=== PATIENT | female | born 1985 | race Two or more races ===

== ENCOUNTER → 2021-07-30 14:53 | Outpatient (BNVA) | payer OTHER, SELFPAY | PROVIDERS: PCP Family Medicine; Referring Provider Family Medicine; Visit Provider Internal Medicine Gastroenterology | DX: K51.90 Ulcerative colitis, unspecified, without complications (principal); Z93.2 Ileostomy status | CPT/HCPCS: 99202 ==

== ENCOUNTER 2021-11-15 16:41 | Outpatient (REF) | payer OTHER, SELFPAY ==
--- NOTE | ~2021-11-15 | XR_ITS ---
EXAMINATION: XR CHEST CLINICAL INFORMATION: Cough COMPARISON: None TECHNIQUE: 2 views of the chest were obtained. FINDINGS: No significant abnormality is noted involving the heart, lungs, mediastinum, bony thorax or soft tissues. XR/XR chest 2V IMPRESSION: No acute disease.
== END 2021-11-15 16:42 | disposition home or self-care (01) ==
LOC: HO.XRAY 16:41
PROVIDERS: Absent Provider Family Medicine; PCP Family Medicine; Visit Provider Internal Medicine Geriatric Medicine
DX: R05.9 Cough, unspecified (principal)
CPT/HCPCS: 71046

== ENCOUNTER 2021-12-13 10:47 | Day surgery (SDC) | payer OTHER, SELFPAY ==
--- NOTE | 2021-12-10 09:17 | HO.ANESPROP2 ---
Documented by User: Sarah Fletcher NP 12/10/21 09:17 HPI - Anesthesia Eval Consult details Narrative: 36yo F for Sigmoidoscopy Flexible [facility] Active Problems Active Problems: All Active Problems (Updated 08/10/21 @ 13:49 by Racquel Villegas MD) Dysmenorrhea (Acute) Ulcerative colitis (Acute) Past Medical History Medical History CMV (cytomegalovirus infection) History of depression Psoriasis Ulcerative colitis Surgical History Surgical History Hx of wisdom tooth extraction Status post colectomy Social History Social History Patient Tobacco Use Status: Never used Tobacco Use of substances other than those prescribed or required for medical reasons: No Are you DNR?: No Advance Directives: No Advance Directives Information Provided: Yes Meds Allergies Allergy/AdvReac Type Severity Reaction Status Date / Time infliximab [From Remicade] Allergy Unknown Verified 12/13/21 10:57 Sulfa (Sulfonamide Allergy Anaphylaxis Verified 12/13/21 10:57 Antibiotics) Home Medications Medication Instructions Recorded Confirmed Last Taken Type mesalamine 1,000 mg rectal 1 g ND BEDTIME 07/30/21 07/30/21 Unknown History suppository fluoxetine 20 mg capsule 1 cap PO QAM 12/13/21 12/13/21 Unknown History norethindrone (contraceptive) 0.35 1 tab PO DAILY 12/13/21 12/13/21 Unknown History mg tablet Exam Exam Date and Time: December 10, 2021 0917 Assessment and Plan Assessment Anesthesia Assessment: Chart Reviewed Documented by User: Tavia Rodriguez MD 12/13/21 12:01 [facility] Past Medical History Medical History CMV (cytomegalovirus infection) History of depression Psoriasis Ulcerative colitis Family History Family history of problems with anesthesia: No Surgical History Surgical History Hx of wisdom tooth extraction Status post colectomy History of Problems with Anesthesia: No Social History Social History Patient Tobacco Use Status: Never used Tobacco Use of substances other than those prescribed or required for medical reasons: No Are you DNR?: No Advance Directives: No Advance Directives Information Provided: Yes Meds Allergies Allergy/AdvReac Type Severity Reaction Status Date / Time infliximab [From Remicade] Allergy Unknown Verified 12/13/21 10:57 Sulfa (Sulfonamide Allergy Anaphylaxis Verified 12/13/21 10:57 Antibiotics) Home Medications Medication Instructions Recorded Confirmed Last Taken Type mesalamine 1,000 mg rectal 1 g ND BEDTIME 07/30/21 07/30/21 Unknown History suppository fluoxetine 20 mg capsule 1 cap PO QAM 12/13/21 12/13/21 Unknown History norethindrone (contraceptive) 0.35 1 tab PO DAILY 12/13/21 12/13/21 Unknown History mg tablet Exam Airway Mallampati Class: II TM Dist: >3cm Neck ROM: Full Heart: rrr Lungs: cta Assessment and Plan Assessment Anesthesia Assessment: Anesthesia Plan Discussed and Chart Reviewed Final Anesthetic Review Family History of Problems with Anesthesia: No History of Problems with Anesthesia: No NPO: Yes ASA Class: II Final Preanesthetic Review: No Changes in Pt Med Stat, Meds/Allgs Chart Reviewed and Consent Obtained/Reviewed Patient Risk: Intermediate Procedure Risk: Intermediate Anesthetic Plan Anesthetic Plan: MAC: Disposition: Standard PACU
[2021-12-13 11:06] VITALS: BMI 26.4
[2021-12-13 11:11] VITALS: BP 105/77; PULSE 63; RESP 15; TEMP 36.3; O2SAT 97
[2021-12-13 11:18] LABS: UPreg QC Valid YES
[2021-12-13 11:20] LABS: Urine Pregnancy NEGATIVE (NEGATIVE)
[2021-12-13] MEDS: Lactated Ringers 1,000 ML 100 ML IVCONT (11:28)
--- NOTE | 2021-12-13 12:02 | P.HPSUR_ITS ---
Pre-Procedural Eval Section A Date of Service: 12/13/21 The patient is an INPATIENT: No The History & Physical has been completed within 30 days and I have reviewed it.: No Section B Chief Complaint: colitis Details of Present Illness: Follow-up of ulcerative colitis Relevant Family History (Specify if Yes): No Relevant Social History: None Present Medications: see Short Stay Collaborative assessment Medical History: Significant History (CMV (cytomegalovirus infection) Psoriatic arthritis) History of Previous Operations: Relevant previous surgery/procedure and date(s) (Subtotal colectomy with removal of TI and ? 1 foot of TI at [place], in [facility]) Allergies: Allergies Allergy/AdvReac Type Severity Reaction Status Date / Time infliximab [From Remicade] Allergy Unknown Verified 12/13/21 10:57 Sulfa (Sulfonamide Allergy Anaphylaxis Verified 12/13/21 10:57 Antibiotics) Review of Systems Sugical H&P ROS: Negative: Constitution, Cardiovascular, Respiratory and Gastrointestinal Exam Surgical H&P Exam: Normal: Heart, Normal: Lungs, Normal: Extremities and Normal: Abdomen Plan Diagnosis/Plan: Unchanged I have reviewed the history and physical and performed a pertinent physical examination on my patient. No changes have occurred unless specified.
--- NOTE | 2021-12-13 12:03 | PM.OP ---
Brief Operative Note Date of Service: 12/13/21 Pre-op diagnosis: FU of UC. Subtotal colectomy with removal of TI and ? 1 foot of TI at [place], in [facility] Post-op diagnosis: same Procedure: ILEOSCOPY THROUGH STOMA AND FLEXIBLE SIGMOIDOSCOPY TILL 5 CMS WITH BIOPSIES Consent: Indications for the procedure and potential complications of bleeding, perforation, reaction to medications and missed diagnosis were discussed with the patient and informed consent was obtained. Instrument: Olympus PCF H 190 L variable stiffness pediatric colonoscope Monitoring: Vital signs and clinical assessment, intermittent blood pressure monitoring, continuous EKG monitoring, Pulse oximetry and Carbon Dioxide monitoring were done throughout the procedure. Procedure: The patient was placed in the supine position for ileoscopy and pre-procedure medications were administered. After digital examination of the Ostomy stoma, the video colonoscope was advanced to 25 cms. The colonoscope was slowly withdrawn in a retrograde panoramic fashion and the colon mucosa was carefully examined Pt was repositioned into the left lateral decubitis position for the sigmoidoscopy After a digital rectal examination of the ano-rectum, the video colonoscope was inserted into the rectum and advanced through the colon to 5 cms. The colonoscope was slowly withdrawn in a retrograde panoramic fashion and the colon mucosa was carefully examined including a retroflexed view of the rectum. Findings and interventions are described below. ILEOSCOPY: Findings: Terminal Ileum: Normal small bowel mucosa without erythema or ulcerations FLEXIBLE SIGMOIDOSCOPY: Rectum: Friable appearing rectal mucosa in the rectal stump without ulcerations or bleeding. Random biopsies were obtained Ano-rectum: Normal on antegrade withdrawl Colon preparation: Good Impression and Post Procedure Diagnosis: Ileoscopy and flexible sigmoidoscopy Findings: Terminal Ileum: Normal small bowel mucosa without erythema or ulcerations Rectum: Friable appearing rectal mucosa in the rectal stump without ulcerations or bleeding. Random biopsies were obtained Plan: Await pathology results Patient to schedule a FU appointment in the GI clinic with Racquel Villegas M.D.. Repeat sigmoidoscopy in 2 years for UC surveillance. Ulcerative Colitis handout was given in the discharge area Surgeon: Racquel Villegas MD Anesthesia: MAC Was an Commercial Lines Underwriter used for this Procedure?: Yes Commercial Lines Underwriter: Vicky Berg Estimated blood loss (mL): 0 Pathology: other (A. rectal stump bxs) Condition: stable Disposition: PACU
--- NOTE | 2021-12-13 12:13 | W.PM.OPN ---
Operative Note Operative Note Date of Service: 12/13/21 Narrative: Pre-op diagnosis: FU of UC. Subtotal colectomy with removal of TI and ? 1 foot of TI at [place], in [facility] Post-op diagnosis:?same Procedure: ILEOSCOPY THROUGH STOMA AND FLEXIBLE SIGMOIDOSCOPY TILL? 5 CMS WITH BIOPSIES Consent: Indications for the procedure and potential complications of bleeding, perforation, reaction to medications and missed diagnosis were discussed with the patient and informed consent was obtained. Instrument: Olympus PCF H 190 L variable stiffness pediatric colonoscope Monitoring: Vital signs and clinical assessment, intermittent blood pressure monitoring, continuous EKG monitoring, Pulse oximetry and Carbon Dioxide monitoring were done throughout the procedure. Procedure: The patient was placed in the supine position for ileoscopy and pre-procedure medications were administered.? After digital examination of the Ostomy stoma, the video colonoscope was advanced to 25 cms.? The colonoscope was slowly withdrawn in a retrograde panoramic fashion and the colon mucosa was carefully examined Pt was repositioned into the left lateral decubitis position for the sigmoidoscopy After a digital rectal examination of the ano-rectum, the video colonoscope was inserted into the rectum and advanced through the colon to 5 cms. The colonoscope was slowly withdrawn in a retrograde panoramic fashion and the colon mucosa was carefully examined including a retroflexed view of the rectum. Findings and interventions are described below. ILEOSCOPY: Findings: Terminal Ileum: Normal small bowel mucosa without erythema or ulcerations FLEXIBLE SIGMOIDOSCOPY: Rectum:? Friable appearing rectal mucosa in the rectal stump without ulcerations or bleeding.? Random biopsies were obtained Ano-rectum:? Normal on antegrade withdrawl Colon preparation:? Good? Impression and Post Procedure Diagnosis: Ileoscopy and flexible sigmoidoscopy Findings: Terminal Ileum: Normal small bowel mucosa without erythema or ulcerations Rectum:? Friable appearing rectal mucosa in the rectal stump without ulcerations or bleeding.? Random biopsies were obtained Plan: Await pathology results Patient to schedule a FU appointment in the GI clinic with Racquel Villegas M.D.. Repeat sigmoidoscopy in 2 years for UC surveillance. Ulcerative Colitis handout was given in the discharge area Surgeon: Racquel Villegas MD Anesthesia:?MAC Was an Grinder Operator Automatic used for this Procedure?:?Yes Grinder Operator Automatic:?Vicky Berg Estimated blood loss (mL):?0 Pathology:?other (A. rectal stump bxs) Condition:?stable Disposition:?PACU
[2021-12-13 12:44] VITALS: BP 97/57; PULSE 52; RESP 16; TEMP 36.6; O2SAT 99
[2021-12-13 12:59] VITALS: BP 95/63; PULSE 70; RESP 18; TEMP 37.1; O2SAT 99
== END 2021-12-13 13:32 ==
LOC: HO.SSS 10:48
PROVIDERS: Nurse Practitioner; PCP Family Medicine; Visit Provider Internal Medicine Gastroenterology
PROC: 0DJD8ZZ Inspection of Lower Intestinal Tract, Via Natural or Artificial Opening Endoscopic (ICD-10-PCS; CPT 45330; principal; 2021-12-13 14:10)
DX: K51.90 Ulcerative colitis, unspecified, without complications (principal); K62.5 Hemorrhage of anus and rectum; Z93.2 Ileostomy status; Z90.49 Acquired absence of other specified parts of digestive tract; Z86.19 Personal history of other infectious and parasitic diseases; Z79.899 Other long term (current) drug therapy; Z88.2 Allergy status to sulfonamides; Z88.8 Allergy status to other drugs, medicaments and biological substances
CPT/HCPCS: 45331; 44380; 81025; 88305

== ENCOUNTER 2022-08-22 07:48 | Outpatient (REF) | payer OTHER, SELFPAY ==
[2022-08-22 09:59] LABS: Hematocrit 44.1 % (37.0-47.0); Hemoglobin 14.7 g/dl (12.0-16.0); Mean Corpuscular HGB Conc 33.3 g/dl (31.0-35.0); Mean Platelet Volume 9.9 fL (9.4-12.3); Platelet Count 285 X10*3/uL (160-400); Red Blood Count 5.25 X10*6/uL (4.20-5.50); Red Cell Distribution Width 13.1 % (11.0-16.0); White Blood Count 6.2 X10*3/uL (4.8-10.8)
[2022-08-22 11:05] LABS: Alanine Aminotransferase 34 U/L (0-31); Albumin Level 4.8 g/dL (3.5-5.0); Alkaline Phosphatase 51 U/L (39-117); Anion Gap 13 (12-20); Aspartate Amino Transferase 25 U/L (5-31); Bilirubin Total 0.5 mg/dL (0.0-1.0); Blood Urea Nitrogen 13 mg/dL (9-16); C Reactive Protein < 0.10 mg/dL (< or = 0.50); Calcium 9.8 mg/dL (8.4-10.2); Carbon Dioxide 27 mmol/L (22-29); Chloride 104 mmol/L (96-108); Estimated Glomerular Filt Rate > 60; Glucose Random 92 mg/dL (60-115); Potassium 5.2 mmol/L (3.3-5.1); Sodium 139 mmol/L (135-145); Total Protein 7.6 g/dL (6.5-8.0)
[2022-08-22 11:11] LABS: Hepatitis A Antibody IgG REACTIVE (Nonreactive); ~Hepatitis A Antibody IgG 10.58 S/CO (0.00-0.99)
[2022-08-22 11:15] LABS: HBsAGNum1 0.36 S/CO (0.00-0.99); Hepatitis B Core Antibody Nonreactive (Nonreactive); Hepatitis B Surface Antigen Negative (Negative); ~Hepatitis B Surface Antibody REACTIVE (Nonreactive)
[2022-08-22 11:21] LABS: Folate 14.9 ng/mL (> or = 4.0); Vitamin B12 1551 pg/mL (200-900)
== END 2022-08-22 07:49 | disposition home or self-care (01) ==
LOC: HO.LAB 07:48
PROVIDERS: PCP Family Medicine; Referring Provider Family Medicine; Visit Provider Internal Medicine Gastroenterology
DX: K51.90 Ulcerative colitis, unspecified, without complications (principal)
CPT/HCPCS: 36415; 80053; 82607; 82746; 85027; 86140; 86704; 86706; 86708; 87340; 99212

== ENCOUNTER → 2022-10-27 12:55 | Outpatient (BNVA) | payer OTHER, SELFPAY | PROVIDERS: PCP Family Medicine; Referring Provider Family Medicine; Visit Provider Internal Medicine | DX: R42 Dizziness and giddiness (principal) | CPT/HCPCS: 93005; 99202 ==

== ENCOUNTER → 2022-12-14 08:19 | Outpatient (REF) | payer OTHER, SELFPAY ==
--- NOTE | 2022-12-14 08:22 | CA_ITS ---
Transthoracic Echocardiogram Patient (Last, First, Middle): Diamond Schulz, Gender: Female Date of : 1985 Age: 37 Procedure Date: 12/14/2022 Procedure Type: Transthoracic Echocardiogram Location: OP Height: 175.26 cm Weight: 86.18 kg BSA: 2.02 m2 Heart Rate: 55 bpm BP: 122 / 66 mmHg Electronic Scanner Operator: Referring MD: Louis Meléndez MD Signal Fitter: Juan Jacobsen MD Symptoms: R42 - Dizziness and giddiness Study Quality: Adequate ECG Rhythm: Bradycardia Conclusions: - Essentially normal study Findings Left Ventricle Normal left ventricular size, thickness, and systolic function. The visually estimated ejection fraction is between 55-60%. Spectral Doppler is indicative of a normal filling pattern. Right Ventricle Normal right ventricular cavity size and systolic function. Atria Both atria are normal in size. Aortic Valve Normal aortic valve structure and function. There is no aortic valve stenosis. There is no aortic valve regurgitation. Mitral Valve Normal mitral valve structure and function. There is trace mitral valve regurgitation. There is no mitral valve stenosis. Pulmonic Valve The pulmonic valve is likely normal. Tricuspid Valve Normal tricuspid valve structure. Tricuspid regurgitation envelope is inadequate for calculation of right ventricular systolic pressure. Normal right atrial pressure. Great Vessels All visible segments of the aorta are normal in size. The pulmonary artery was not well visualized. Venous The inferior vena cava is normal in size and collapses greater than 50% with inspiration. Pericardium/Pleural There is no evidence of pericardial effusion. Prior Study Comparison No prior study available for comparison. Measurements 2D Linear Measurements IVSd: 0.90 0.6-0.9/0.6-1.0 cm LVIDd: 4.59 3.9-5.3/4.2-5.9 cm LVIDd Index: 2.27 2.4-3.2/2.2-3.1 cm/m2 LVIDs: 3.02 2.0-3.6 cm LVPWd: 0.85 0.7-1.1 cm LA Diam: 3.10 2.7-3.8/3.0-4.0 cm LAIDs Index: 1.53 1.5-2.3 cm/m2 LV Mass: 164.46 67-162/88-224 g LV Mass Index: 81.42 43-95/49-115 g/m2 LVOT Diam: 2.20 3.0+(-)1.3 cm 2D Systolic Function EF 4C: 55.00 >55% EF 2C: 57.50 >55% EF BiP: 55.40 >55% Mitral Valve MV Pk E: 0.64 MV PK A: 0.71 MV Decel Time: 205.00 E/A: 0.90 E'Lateral: 18.80 E'Medial: 10.80 E/E' Med: 5.90 E/E' Lat: 3.40 PHT: 60.00 MVA PHT: 3.67 Decel [place]: 3.12 Aortic Valve AoV Pk Beau: 1.31 AoV Mn Beau: 0.90 AoV VTI: 0.32 AoV Pk Grad: 7.00 Aov Mn Grad: 4.00 WALDO Cont.VTI: 2.17 LVOT LVOT Pk Beau: 0.78 LVOT Mn Beau: 0.49 LVOT VTI: 0.19 LVOT Pk Grad: 2.00 LVOT Mn Grad: 1.00 LVOT Diam: 2.20 LVOT Area: 3.80 Diastolic Function MV Pk E: 0.64 MV Pk A: 0.71 E/A: 0.90 E'Medial: 10.80 E/E' Med: 5.90 E' Laterial: 18.80 E/E' Lat: 3.40 Right Ventricle TAPSE (mm): 28.10 TVS' Beau: 11.00 Tricuspid Valve TR Pk Beau: 2.11 TR Pk Grad: 18.00 RA Press: 3.00 Great Vessels Aorta Sinus of Valsalva: 2.90 2.0-3.5 cm Ao Asc: 3.10 2.1-3.4 cm Pulmonary Valve PV Pk Beau: 0.84 Peak PV Grad: 3.00 Updated in Other Vendor System with Status of Final Juan Jacobsen MD electronically signed on 12/15/2022 11:54:40 AM with status of Final
== END ==
LOC: HO.CARD 08:19
PROVIDERS: PCP Family Medicine; Visit Provider Internal Medicine
DX: R42 Dizziness and giddiness (principal)
CPT/HCPCS: 93306

== ENCOUNTER → 2022-12-14 08:22 | Outpatient (BNV) | payer OTHER, SELFPAY | PROVIDERS: PCP Family Medicine; Visit Provider Internal Medicine Cardiovascular Disease | DX: R42 Dizziness and giddiness (principal) | CPT/HCPCS: 93306 ==

== ENCOUNTER 2023-01-11 12:14 | Outpatient (AMB) | payer OTHER, SELFPAY ==
--- NOTE | 2023-01-11 12:32 | A.OFFVIS_ITS ---
Intake Vital Signs 01/11/23 12:37 Height 5 ft 8 in Weight 194 lb 14.218 oz BMI 29.6 BP 112/80 Blood Pressure Location Rt brachial Position Sitting Pulse 83 Intake Visit Reasons: f/up tilt/ echo Intake Note: follow up testing Barber Required: No Accompanied by: Self / Same As Patient Allergies infliximab [From Remicade] Allergy (Verified 01/11/23 12:38) Unknown Sulfa (Sulfonamide Antibiotics) Allergy (Verified 01/11/23 12:38) Anaphylaxis Medication List - Last Reconciled 01/11/23 by Louis Meléndez MD mesalamine 1 g [place] BEDTIME HPI HPI Comments History of Present Illness Details Diamond returns for follow-up. Recently seen in consultation regarding dizziness. She states that she has been dizzy for a long time. In fact she has felt this way for many many years. She states that whenever she gets up from a seated position, she can get dizzy. At the same time, she is also feeling heart racing. She is already eating a lot of salt, but that does not help much. Also tried compression stockings. No known cardiac issues. No angina or shortness of breath. No major co-morbidities, but she states she has had a colectomy because of ulcerative colitis. Hence, unclear if she has any absorption issues. Otherwise, no chest pain or shortness of breath. Since last seen, completed an echocardiogram and tilt-table testing. [facility] Medical History (Updated 10/27/22 @ 13:23 by Louis Meléndez MD) History of depression Psoriasis Ulcerative colitis CMV (cytomegalovirus infection) Surgical History Hx of sigmoidoscopy Hx of wisdom tooth extraction Status post colectomy Family History Paternal Grandfather Heart attack Mother No problems noted. Father Colitis Social History Patient Tobacco Use Status: Never used Tobacco Review of Systems Const Denies weakness ENT Denies dizziness Card Denies chest pain, Denies chest pain with activity, Denies syncope, Denies rapid heart rate, Denies pedal edema, Denies edema, Denies leg edema, Denies lightheadedness, Denies palpitations, Denies dyspnea, Denies dyspnea on exertion and Denies orthopnea Resp Denies cough, Denies dyspnea and Denies dyspnea on exertion GI Denies hematochezia and Denies change in stool character Musc Denies abnormal gait, Denies muscle cramps, Denies muscle weakness, Denies numbness, Denies radiating pain into limb and Denies tingling Neuro Denies abnormal gait, Denies dizziness, Denies syncope, Denies numbness, Denies tingling and Denies weakness Endo Denies palpitations Physical Exam Vital Signs: Last Vital Signs Pulse 83 01/11/23 12:37 BP 112/80 01/11/23 12:37 BMI result Body Mass Index 29.6 Const General: comfortable and no acute distress Orientation/consciousness: patient oriented x3 HEENT Other: Unremarkable Head: Yes normal to inspection Neck Neck: Yes normal visual inspection Chest Chest palpation & inspection: normal inspection of the chest Resp Auscultation: clear to auscultation bilaterally Cardio Palpation: normal PMI Heart sounds: S1 normal heart sound present, S2 normal heart sound present, no gallops, no murmurs and no rubs GI Palpation (GI): Soft to palpation Back/Spine/Pelvis Other: unremarkable Skin General skin exam: no rashes or lesions noted Neuro General: patient oriented x3 Extrem General: Yes normal to inspection Psych Mental Status: mental status grossly normal Assessment & Plan Assessment & Plan (1) Orthostatic dizziness: Code(s): R42 - Dizziness and giddiness Plan Echocardiogram with preserved LVEF, 55-60% and otherwise unremarkable. She underwent tilt-table testing. Based on the findings, initial vital signs were 129/76 mm Hg with a heart rate of 80 and she was already feeling dizzy. With upright tilt, it does not seem that she actually had a drop in blood pressure or significant increase in pulse rate. At 20 minutes, it seems blood pressure was 134/90 mm Hg with a heart rate of 100 at that time she was still having dizziness. It was concluded that there was no evidence of POTS. Additionally, it was felt that the heart rate/blood pressure response was appropriate during rest and tilt. Overall, based on the above no clear etiology for dizziness. She does run lowish blood pressures and that may play some role but not clear if it is the only reason. Even today when she is sitting in the chair she states she is not feeling normal and somewhat dizzy. Overall, continue with liberal salt intake and compression stockings. If there is any clear-cut presyncope type symptoms in the future with associated hypotension, we can then consider midodrine or Florinef. Otherwise, reassurance only. Patient agrees with plan and will call us with ongoing concerns. Coding Level of Care Code Est Pt Level 3 (86152) Diagnoses Orthostatic dizziness R42
[2023-01-11 12:37] VITALS: BP 112/80; PULSE 83; BMI 29.6
== END 2023-01-11 13:06 | disposition home or self-care (01) ==
PROVIDERS: PCP Family Medicine; Visit Provider Internal Medicine
DX: R42 Dizziness and giddiness (principal)
CPT/HCPCS: 99213

== ENCOUNTER → 2023-01-11 12:14 | Outpatient (BNVA) | payer OTHER, SELFPAY | PROVIDERS: PCP Family Medicine; Visit Provider Internal Medicine | DX: R42 Dizziness and giddiness (principal) | CPT/HCPCS: 99212 ==

== ENCOUNTER 2023-04-13 07:50 | Outpatient (AMB) | payer OTHER, SELFPAY ==
--- NOTE | 2023-04-13 07:56 | A.OFFVIS_ITS ---
Intake Vital Signs 04/13/23 07:57 Height 5 ft 8 in Weight 185 lb BMI 28.1 BP 127/64 Blood Pressure Location Lt brachial Position Sitting Pulse 107 H Intake Visit Reasons: 8 mnth follow up Intake Note: Patient follow up for Ulcerative Colitis and lab results. Patient denies any GI issues. Medical Review Coordinator Required: No Accompanied by: Self / Same As Patient Allergies infliximab [From Remicade] Allergy (Verified 04/13/23 07:55) Unknown Sulfa (Sulfonamide Antibiotics) Allergy (Verified 04/13/23 07:55) Anaphylaxis Medication List - Last Reconciled 04/13/23 by Racquel Villegas MD mesalamine 1 g CA BEDTIME HPI 8 mnth follow up HPI Details GI clinic visit for this 38 YF for FU of Ulcerative Colitis. Pt is status post colectomy (3 inches of rectum was left) with ileostomy >5 yrs ago. Hospitalized with SBO after surgery - managed conservatively Pt moved to [place] from [place] in 2020 ENDOSCOPIC STUDIES: 12/13/21 ILEOSCOPY AND FLEX SIG SHOWED: ILEOSCOPY: Terminal Ileum: Normal small bowel mucosa without erythema or ulcerations FLEXIBLE SIGMOIDOSCOPY: Rectum:? Friable appearing rectal mucosa in the rectal stump without ulcerations or bleeding.? Random biopsies were obtained Ano-rectum:? Normal on antegrade withdrawl Plan: Repeat sigmoidoscopy in 2 years for UC surveillance. TODAY'S VISIT: Doing well. Missed 3 days of medication and noted increased frequency of BM with pain. Has 1-2 BMs a day from the rectum. Empties the ileostomy bag from 4 to 6-7 times a day depending on her diet. PAST VISITS: Patient still the same with diarrhea and its normal with her Colitis. Denies any other GI issues. She is doing Ok as long as she does not skip taking the suppositories. Starts having rectal bleeding if she does not take the suppositories for a few days Has chronic joint pains Trying to see a adviser sales - GP suspects she has POTS disease (postural orthostatic tachycardia syndrome) Planning to leave the ileostomy in place and not have reversal surgery Rectal bleeding for the past 2 months - ran out of mesalamine suppositories 5 months before. Complains of nausea and intermittent vomiting ? related to menstrual pain. Patient denies symptoms of heartburn, dysphagia, vomiting, change in appetite or weight.? Empties ileostomy bag 7-8 times a day - more if she eats more fibre. Abdominal cramps associated with her periods. Intermittent rectal bleeding - improving since she resumed taking meslamine suppositories Patient denies major cardiac or pulmonary problems, loud snoring or sleep apnea Has severe fatigue. Undergoing workup with Pelvic US to look for endometriosis Denies problems with anesthesia in the past. (seizures when she had her wisdom teeth removed and none since) Denies being on chronic anticoagulation. Takes Ibuprofen several times a month for RICARDO (10 tab per month) Patient denies known family history of colon polyps, colon cancer or other GI malignancies. Dad has mild UC - 7 yrs ago (after he stopped smoking) and is on Inflectra. 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 Pancolitis LAST COLONOSCOPY FINDINGS: Had EGD, ileoscopy and flex sig 3 yrs ago in [place], [place] NEXT COLON DUE:? 2021 EXTRAINTESTINAL MANIFESTATIONS:? Joint pains - knees, elbows, hands and hips Denies skin rash or eye problems Psoriatic arthritis - resolved on GFD x 7 yrs BONE DISEASE:? Per patient no osteoporosis on past Bone Density Studies. GI SURGERY:? Subtotal colectomy with removal of TI and ? 1 foot of TI at [facility] in [facility] PAST TREATMENTS:Prednisone 40 to 60 mg of > a year, multiple mesalamine preparations, Remicade caused serum sickness, Entyvio x 6 months and it was not working. 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 ? vaccination as a teenager. TB screen:? Negative while on Remicade and Entyvio [facility] Medical History (Updated 10/27/22 @ 13:23 by Louis Meléndez MD) History of depression Psoriasis Ulcerative colitis CMV (cytomegalovirus infection) Surgical History (Updated 04/13/23 @ 08:19 by Racquel Villegas MD) Hx of sigmoidoscopy Hx of wisdom tooth extraction Status post colectomy Family History Paternal Grandfather Heart attack Mother No problems noted. Father Colitis Social History Patient Tobacco Use Status: Never used Tobacco Review of Systems Const All systems reviewed & are unremarkable except as noted in HPI and below Physical Exam Vital Signs: Last Vital Signs Pulse 107 H 04/13/23 07:57 BP 127/64 04/13/23 07:57 BMI result Body Mass Index 28.1 Const General: healthy appearing and no acute distress Nutritional Appearance: overweight Orientation/consciousness: patient oriented x3 Limitations: no limitations HEENT Head: Yes normal to inspection Ears: hearing grossly normal bilaterally Eyes Sclerae: sclerae normal Pupils: Equal, round and reactive pupils present Neck Neck: Yes normal visual inspection Chest Chest palpation & inspection: normal inspection of the chest Resp Effort & Inspection: normal respiratory effort Auscultation: clear to auscultation bilaterally Cardio Palpation: normal PMI Rate: regular rate Rhythm: regular rhythm Heart sounds: S1 normal heart sound present, S2 normal heart sound present and no murmurs GI Inspection: Yes other (Ileostomy in RLQ with brown stools in ileostomy bag) Palpation (GI): Soft to palpation, nontender and No hepatosplenomegaly present Auscultation: normal bowel sounds Rectal Exam - Female: deferred Skin General skin exam: no rashes or lesions noted Neuro General: patient oriented x3, gait normal and moves all extremities Cranial nerves: Yes Equal, round and reactive pupils present Psych Appearance: grossly normal Mental Status: mental status grossly normal Assessment & Plan Assessment & Plan (1) Ulcerative colitis: Code(s): K51.90 - Ulcerative colitis, unspecified, without complications (2) Status post colectomy: Comment: Subtotal colectomy with ileostomy for severe UC in 2017 at in [place], [place] Has 3 inches of rectal cuff. Code(s): Z90.49 - Acquired absence of other specified parts of digestive tract Plan 38 YF with hx of ulcerative Pancolitis diagnosed at age 23 yrs (had symptoms since age 17 yrs). Pt is status post colectomy (3 inches of rectum was left) with ileostomy 5 yrs ago. She may elect to undergo takedown of ileostomy with ileo-anal pouch in the future. 08/22/22 Planning to leave the ileostomy in place and not have reversal surgery Hospitalized with SBO after surgery - managed conservatively Pt moved to [place] from [place] in 2020 I will obtain her past records from [place] and [place] Rectal bleeding for the past 2 months - ran out of mesalamine suppositories 5 months before. Intermittent rectal bleeding - improving since she resumed taking meslamine suppositories Undergoing workup with Pelvic US to look for endometriosis not pursued since symptoms resolved. Of note, pt is immune to Hep A and B 08/22/22 Pt was advised to continue with mesalamine suppositories. 04/13/23 Referred to Surgery (Colostomy Nurse) to help obtain supplies for her ileostomy. Pt will be scheduled for a FU appt in 7-8 months Due for FU Flex Sig in 11/2023 Orders: Orders Comprehensive Met. Panel 04/13/23 K51.90 - Ulcerative colitis, unspecified, without complications Vitamin B12 and Folate 04/13/23 K51.90 - Ulcerative colitis, unspecified, without complications Complete Blood Count no Diff 04/13/23 K51.90 - Ulcerative colitis, unspecified, without complications Vitamin D 25-OH Total 04/13/23 K51.90 - Ulcerative colitis, unspecified, without complications Referrals General Surgery Referral Z90.49 - Acquired absence of other specified parts of digestive tract Coding Level of Care Code Est Pt Level 4 (39716) Diagnoses Ulcerative colitis K51.90 Status post colectomy Z90.49 Time Spent (min) 21
[2023-04-13 07:57] VITALS: BP 127/64; PULSE 107; BMI 28.1
== END 2023-04-13 09:14 | disposition home or self-care (01) ==
PROVIDERS: PCP Family Medicine; Referring Provider Family Medicine; Visit Provider Internal Medicine Gastroenterology
DX: K51.90 Ulcerative colitis, unspecified, without complications (principal); Z90.49 Acquired absence of other specified parts of digestive tract
CPT/HCPCS: 99214

== ENCOUNTER → 2023-04-13 07:50 | Outpatient (BNVA) | payer OTHER, SELFPAY | PROVIDERS: Visit Provider Internal Medicine Gastroenterology | DX: K51.90 Ulcerative colitis, unspecified, without complications (principal); Z90.49 Acquired absence of other specified parts of digestive tract | CPT/HCPCS: 99212 ==

== ENCOUNTER 2023-09-27 09:42 | Outpatient (REF) | payer OTHER, SELFPAY ==
[2023-09-27 10:44] LABS: Hematocrit 40.2 % (37.0-47.0); Hemoglobin 13.2 g/dl (12.0-16.0); Mean Corpuscular HGB Conc 32.8 g/dl (31.0-35.0); Mean Corpuscular Hemoglobin 27.2 pg (27.0-33.0); Mean Corpuscular Volume 82.7 fL (80.0-98.0); Mean Platelet Volume 10.8 fL (9.4-12.3); Platelet Count 276 X10*3/uL (160-400); Red Blood Count 4.86 X10*6/uL (4.20-5.50); Red Cell Distribution Width 13.4 % (11.0-16.0)
[2023-09-27 11:38] LABS: Alanine Aminotransferase 15 U/L (0-31); Albumin Level 4.5 g/dL (3.5-5.0); Alkaline Phosphatase 45 U/L (39-117); Anion Gap 12 (12-20); Aspartate Amino Transferase 16 U/L (5-31); Bilirubin Total 0.3 mg/dL (0.0-1.0); Blood Urea Nitrogen 19 mg/dL (9-16); Calcium 9.5 mg/dL (8.4-10.2); Carbon Dioxide 26 mmol/L (22-29); Chloride 106 mmol/L (96-108); Estimated Glomerular Filt Rate > 60; Glucose Random 89 mg/dL (60-115); Potassium 4.6 mmol/L (3.3-5.1); Sodium 139 mmol/L (135-145); Total Protein 7.3 g/dL (6.5-8.0)
[2023-09-27 11:56] LABS: Vitamin D 25-OH Total 33.2 ng/mL (>30)
[2023-09-27 11:58] LABS: Folate 10.6 ng/mL (> or = 4.0); Vitamin B12 1235 pg/mL (200-900)
== END 2023-09-27 09:43 | disposition home or self-care (01) ==
LOC: HO.LAB 09:42
PROVIDERS: PCP Family Medicine; Visit Provider Internal Medicine Gastroenterology
DX: K51.90 Ulcerative colitis, unspecified, without complications (principal)
CPT/HCPCS: 36415; 80053; 82306; 82607; 82746; 85027

== ENCOUNTER 2024-09-05 16:35 | Outpatient (REF) | payer OTHER, SELFPAY ==
--- OUTSIDE RECORDS SUMMARY | 2024-09-05 16:37 | XMS_ITS | Encounter Summary ---
Author Organization [facility] Address [address] [place] [address] 7 [place] [address] Care Team Providers Care Home Care Music Therapist Name Role Phone Nel Yoon MD Primary Care Provider [phone] Encounter Details Date Type Department Care Team (Late st Contact Info) Description 08/12/2022 Orders Only [facility] [address] [place] [address] [phone] Nel Yoon MD [address] [place] [address] [phone] POTS (postural orthostatic tachycardia syndrome) (Primary Dx); History of COVID-19; Ulcerative colitis with complication, unspecified location (CMS/[facility]) Social History Tobacco Use Types Packs/Day Years Used Date Smoking Tobacco: Never Assessed Comments Unknown Sex and Gender Information Value Date Recorded Sex Assigned at Female 02/28/2022 10:40 AM EDT Legal Sex Female 10:40 AM EDT Gender Identity Female 02/28/2022 10:40 AM EDT Sexual Orientation Straight 02/28/2022 10 :40 AM EDT documented as of this encounter Plan of Treatment Upcoming Encounters Date Type Department Care Team (Late st Contact Info) Description 10/16/2024 10:30 AM EDT Office Visit [facility] [address] [place] [address] [phone] Nel Yoon MD [address] [place] [address] [phone] documented as of this encounter Procedures Procedure Name Priority Date/Time Associated Diagnosis Comments VITAMIN B12/FOLATE, SERUM PANEL Routine 08/22/2022 8:46 AM EDT POTS (postural orthostatic tachycardia syndrome) HEPATITIS A ANTIBODY, TOTAL Routine 08/22/2022 8:46 AM EDT POTS (postural orthostatic tachycardia syndrome) HEPATITIS B SURFACE ANTIGEN, EIA Routine 08/22/2022 8:46 AM EDT POTS (postural orthostatic tachycardia syndrome) HEPATITIS B CORE AB TOTAL Routine 08/22/2022 8:46 AM EDT POTS (postural orthostatic tachycardia syndrome) HEPATITIS B SURFACE ANTIBODY, QUALITATIVE Routine 08/22/2022 8:46 AM EDT POTS (postural orthostatic tachycardia syndrome) CBC Routine 08/22/2022 8:46 AM EDT POTS (postural orthostatic tachycardia syndrome) C-REACTIVE PROTEIN Routine 08/22/2022 8: 46 AM EDT POTS (postural orthostatic tachycardia syndrome) COMPREHENSIVE METABOLIC PANEL Routine 08/22/2022 8:46 AM EDT POTS (postural orthostatic tachycardia syndrome) documented in this encounter Results * Hepatitis B surface antigen, EIA (08/22/2022 8:46 AM EDT) Hepatitis B Surface Ag Negative Negative [facility] 08/22/2022 8:46 AM EDT 08/22/2022 8:46 AM EDT [facility] External Provider LAB BLO OD ORDERABLES Final Result [facility] [address] [place] [phone] * Hepatitis B Core Antibody, Total (08/22/2022 8:46 AM EDT) Hepatitis B Core Antibody Nonreactive Nonreactive [facility] 08/22/2022 8:46 AM EDT 08/22/2022 8:46 AM EDT [facility] External Provider LAB BLO OD ORDERABLES Final Result Performing Organization Address [facility] Co de Phone Number [facility] [address] [place] [phone] * Hepatitis B Surface Antibody, Qualitative (08/22/2022 8:46 AM EDT) ~Hepatitis B Surface Antibody REACTIVE Nonreactive [facility] Comment:REACTIVE: > 11.99 mI U/mL 08/22/2022 8:46 AM EDT 08/22/2022 8:46 AM EDT [facility] External Provider LAB BLO OD ORDERABLES Final Result Performing Organization Address [facility] Phone Number [facility] [address] [place] [phone] * Hepatitis A Antibody IgG (08/22/2022 8:46 AM EDT) Pathologist [facility] Hepatitis A Antibody IgG REACTIVE Nonreactive [facility] Comment:The presence of IgG anti-HAV implies past HAV infection(recent or distant) or vaccination against HAV. 08/22/2022 8:46 AM EDT 08/22/2022 8:46 AM EDT [facility] External Provider LAB BLO OD ORDERABLES Final Result Performing Organization Address [facility] Co de Phone Number [facility] [address] [place] [address] [phone] * (ABNORMAL) Vitamin B12/Folate, Serum Panel (08/22/2022 8:46 AM EDT) Pathologist [facility] Vitamin B12 1,551(H) 200 - 900 pg/mL [facility] Comment:NORMAL 200-900 PG/ML INDETERMINATE 160-199 PG/ML DEFICIENT < 160 PG/ML Folate 14.9 > or = 4.0 ng/mL [facility] Comment:Reference Values:> o r = 4.0 ng/mL< 4.0 ng/mL suggests folate deficiency Methotrexate, aminopterin and folinic acid(leucovorin) are chemotherapeutic agents whose molecularstructures are similar to folate; therefore, the Architectfolate assay cannot be used for patients using these drugs. 08/22/2022 8:46 AM EDT 08/22/2022 8:46 AM EDT [facility] External Provider LAB BLO OD ORDERABLES Final Result Performing Organization Address [facility] Co de Phone Number [facility] [address] [place] [phone] * C-reactive Protein (08/22/2022 8:46 AM EDT) C Reactive Protein <0.10 < or = 0.50 mg/dL [facility] 08/22/2022 8:46 AM EDT 08/22/2022 8:46 AM EDT [facility] External Provider LAB BLO OD ORDERABLES Final Result Performing Organization Address [facility] Co de Phone Number [facility] [address] [place] [phone] * (ABNORMAL) Comprehensive Metabolic Panel (08/22/2022 8:46 AM EDT) Sodium 139 135 - 145 mmol/L [facility] Potassium 5.2(H) 3.3 - 5.1 mmol/L [facility] Chloride 104 96 - 108 mmol/L [facility] Carbon Dioxide 27 22 - 29 mmol/L [facility] Anion Gap 13 12 - 20 [facility] Urea Nitrogen (BUN) 13 9 - 16 mg/dL [facility] Creatinine, Serum 0.80 0.5 - 1.4 mg/dL [facility] Estimated Glomerular Filt Rate >60 [facility] Comment:NOTE: For -Am erican individuals, multiply the result by 1.210.Chronic Kidney Disease: Estimated GFR < 60 mL/min/1.70m1Uztrpa Kidney Disease: Estimated GFR < 15 mL/min/1.73m2 Glucose 92 60 - 115 mg/dL [facility] Calcium 9.8 8.4 - 10.2 mg/dL [facility] Bilirubin, Total 0.5 0.0 - 1.0 mg/dL [facility] Aspartate Amino Transferase 25 5 - 31 U/L [facility] Alanine Aminotransferase 34(H) 0 - 31 U/L [facility] Total Protein 7.6 6.5 - 8.0 g/dL [facility] Albumin Level 4.8 3.5 - 5.0 g/dL [facility] Alkaline Phosphatase 51 39 - 117 U/L [facility] 08/22/2022 8:46 AM EDT 08/22/2022 8:46 AM EDT [facility] External Provider LAB BLO OD ORDERABLES Final Result [facility] [address] [place] [phone] * CBC (08/22/2022 8:46 AM EDT) White Blood Count 6.2 4.8 - 10.8 X10*3/uL [facility] Red Blood Count 5.25 4.20 - 5.50 X10*6/uL [facility] Hemoglobin 14.7 12.0 - 16.0 g/dl [facility] Hematocrit 44.1 37.0 - 47.0 % [facility] Mean Corpuscular Volume 84.0 80.0 - 98.0 fL [facility] Mean Corpuscular Hemoglobin 28.0 27.0 - 33.0 pg [facility] Mean Corpuscular HGB Conc 33.3 31.0 - 35.0 g/dl [facility] Red Cell Distribution Width 13.1 11.0 - 16.0 % [facility] Platelet Count 285 160 - 400 X10*3/uL [facility] Mean Platelet Volume 9.9 9.4 - 12.3 fL [facility] NRBC Pct Auto 0.0 0.0 - 0.2 /100WBC [facility] NRBC Abs Auto 0.000 0.0 - 0.012 X10*3/uL [facility] 08/22/2022 8:46 AM EDT 08/22/2022 8:46 AM EDT [facility] External Provider LAB BLO OD ORDERABLES Final Result [facility] [address] [place] [phone] documented in this encounter Visit Diagnoses Diagnosis POTS (postural orthostatic tachycardia syndrome)- Primary Unspecified tachycardia History of COVID-19 Ulcerative colitis with complication, unspecified location (CMS/HCC) documented in this encounter Care Teams Home Care Music Therapist Relationship Specialty Start Date End Date Nel Yoon MD [address] [place] [address] PCP - General Family Medicine 07/22/21 documented as of this encounter
--- OUTSIDE RECORDS SUMMARY | 2024-09-05 16:37 | XMS_ITS | Encounter Summary ---
Author Organization [facility] Address [address] [place] [address] 7 [place] [address] Care Team Providers Care Gantry Rigger Name Role Phone Nel Yoon MD Primary Care Provider [phone] Encounter Details Date Type Department Care Team (Late st Contact Info) Description 09/27/2022 Orders Only [facility] [address] [place] [address] [phone] Nel Yoon MD [address] [place] [address] [phone] Social History Tobacco Use Types Packs/Day Years [...] Description 10/16/2024 10:30 AM EDT Office Visit [facility] [address] [place] [address] [phone] Nel Yoon MD [address] [place] [address] [phone] documented as of this encounter Visit Diagnoses Not on filedocumented in this encounter Care Teams Gantry Rigger Relationship Specialty Start Date End Date Nel Yoon MD [address] [place] [address] [phone] PCP - General Family Medicine 07/22/21 documented as of this encounter
--- OUTSIDE RECORDS SUMMARY | 2024-09-05 16:37 | XMS_ITS | Encounter Summary ---
Author Organization [facility] Address [address] [place] [address] Care Team Providers Care Governor Assembler Name Role Phone Nel Yoon MD Primary Care Provider [phone] Reason for Visit * Reason Onset Date Comments Appointment Request 07/17/2024 Encounter Details Date Type Department Care Team ([facility] st Contact Info) Description 07/17/2024 Telephone [facility] [address] [place], [place] [phone] Nel Yoon MD [address] [place], [place] [phone] Appointment Request Social History Tobacco Use Types Packs/Day Years Used Date Smoking Tobacco: Never Assessed Housing Stability Answer Date Recorded What is your housing situation today? I have sami hernandez 07/12/[address] you li ve. Do you have problems with any of the following? None of the above 07/12/2024 Food Insecurity Answer Date Recorded Within the past 12 months, y ou worried that your food would run out before you got money to buy more: Never True 07/12/2024 Within the past 12 months,th e food you bought just didn't last and you didn't have enough money to get more: Never True Transportation Answer Date Recorded In the past 12 months, has l ack of transportation kept you from medical appts, meetings, work or from getting things needed for daily living? No 07/12/2024 Utilities Answer Date Recorded In the past 12 months, has t he electric, gas, oil or water company threatened to shut off services in your home? No 07/12/2024 Internet Access Answer Date Recorded Internet Access Q1 Yes 07/12/2024 Internet Access Q2 Not on file 07/12/2024 Comments No Sex and Gender Information Value Date Recorded Sex Assigned at Female 02/28/2022 10:40 AM EDT Legal Sex Female 10:40 AM EDT Gender Identity Female 02/28/2022 10:40 AM EDT Sexual Orientation Straight 02/28/2022 10 :40 AM EDT documented as of this encounter Miscellaneous Notes * Telephone Encounter - Terrell [place] - 07/17/2024 1:38 PM EDT Tc from pt requesting to Schedule Apt with PCP due to receiving a message from provider. Glass Unloading Equipment Tender informed pt that there is no Availability and that a message would be sent. Contact pt at [phone] documented in this encounter Plan of Treatment Upcoming Encounters Date Type Department Care Team (Late st Contact Info) Description 10/16/2024 10:30 AM EDT Office Visit [facility] [address] [place] [address] Nel Yoon MD [address] [place] [address] documented as of this encounter Visit Diagnoses Not on filedocumented in this encounter Care Teams Governor Assembler Relationship Specialty Start Date End Date Nel Yoon MD [address] [place] [phone] PCP - General Family Medicine 07/22/21 documented as of this encounter
--- OUTSIDE RECORDS SUMMARY | 2024-09-05 16:37 | XMS_ITS | Encounter Summary ---
Author Organization [facility] Address [address] [place] [address] 7 [place] [address] Care Team Providers Care Aircraft Electronics Technical Officer Name Role Phone Nel Yoon MD Primary Care Provider [phone] Reason for Visit * Reason Comments Med Refill Encounter Details Date Type Department Care Team ([facility] Contact Info) Description 08/20/2023 Refill [facility] [address] [place] [address] [phone] Nel Yoon MD [address] [place] [address] [phone] Ulcerative colitis with complication, unspecified location (CMS/HCC) Social History Tobacco Use Types Packs/Day Years [...] Upcoming Encounters Date Type Department Care Team ([facility] Contact Info) Description 10/16/2024 10:30 AM EDT Office Visit [facility] [address] [place] [address] [phone] Nel Yoon MD [address] [place] [address] [phone] documented as of this encounter Visit Diagnoses Diagnosis Ulcerative colitis with complication, unspecified location (CMS/HCC) documented in this encounter Care Teams Aircraft Electronics Technical Officer Relationship Specialty Start Date End Date Nel Yoon MD [address] [place] [address] PCP - General Family Medicine 07/22/21 documented as of this encounter
--- OUTSIDE RECORDS SUMMARY | 2024-09-05 16:37 | XMS_ITS | Encounter Summary ---
Author Organization [employer] Address [address] [place] [address] 7 [place] [address] Care Team Providers Care Video Tape Transferrer Name Role Phone Nel Yoon MD Primary Care Provider [phone] Encounter Details Date Type Department Care Team (Late Contact Info) Description 06/06/2023 Orders Only [facility] [address] [place] [phone] Nel Yoon MD [address] [place] [address] [phone] Fatigue, unspecified type (Primary Dx); Sleep disturbance Social History Tobacco Use Types Packs/Day Years [...] Encounters Date Type Department Care Team (Late Contact Info) Description 10/16/2024 10:30 AM EDT Office Visit [facility] [address] [place] [address] [phone] Nel Yoon MD [address] [place] [address] [phone] documented as of this encounter Visit Diagnoses Diagnosis Fatigue, unspecified type- Primary Sleep disturbance Unspecified sleep disturbance documented in this encounter Care Teams Video Tape Transferrer Relationship Specialty Start Date End Date Nel Yoon MD [address] [place] [phone] PCP - General Family Medicine 07/22/21 documented as of this encounter
--- OUTSIDE RECORDS SUMMARY | 2024-09-05 16:38 | XMS_ITS | Clinical Summary ---
Author Organization [employer] Address [address] 7[address] [place] [address] Care Team Providers Care Exercise Science Instructor Name Role Phone Nel Yoon MD Primary Care Provider [phone] Allergies Active Allergy Reactions Criticality Noted Date Comments Sulfa Antibiotics Anaphylaxis High 09/05/2024 Medications montelukast (Singulair) 10 MG tablet Take 1 tablet (10 mg) by mouth in the morning. 30 tablet 11 09/28/19 23 Active mesalamine (Canasa) 1000 MG suppositoryIndi cations:Ulcerat ludy colitis with complication, unspecified location (CMS/HCC) UNWRAP AND INSERT 1 SUPPOSITORY RECTALLY EVERYDAY AT BEDTIME 90 suppository 02/14/20 24 Active fluconazole (Diflucan) 150 MG tabletIndicatio ns:Fungal infection Take 1 tablet (150 mg) by mouth every other day for 4 doses. 4 tablet 09/06/19 25 025 Active Active Problems Problem Noted Date Diagnosed Date Ulcerative colitis 08/12/2022 Encounters Date Type Department Care Team Description 09/05/2024 11:20 AM EDT Office Visit [facility] [address] [place] [address] [phone] David Babcock MD Irritant contact dermatitis associated with digestive stoma (Primary Dx); Fungal infection 09/05/2024 Telephone [facility] [address] [place] [address] [phone] David Babcock MD 08/08/2024 Patient Outreach [facility] [address] [place] [address] [phone] Nel Yoon MD Care Coordination ([facility]/SOBIA Sarmiento- R/S missed CM [place] appt) 08/05/[address] [phone] Nel Yoon MD Care Management ([facility] initial assessment-lvm) 08/02/2024 Patient Outreach [address] [address] Nel Yoon MD Care Coordination ([facility]/SOBIA Sarmiento- CM HRMaternity IA appt reminder) 07/17/[address] [address] Nel Yoon MD Appointment Request 07/15/2024 Refill [facility] [address] [place] [phone] Yvonne Clifford MD Ulcerative colitis with complication, unspecified location ([facility]/HCC) 07/13/2024 Refill [facility] [address] [place] [phone] Nel Yoon MD Ulcerative colitis with complication, unspecified location (CMS/HCC) 07/12/2024 Population Health Risk Score [facility] () [address] [phone] Provider, Population Health Generic 07/12/2024 Patient Outreach [address] [address] Nel Yoon MD Care Coordination ([facility]/SOBIA Sarmiento-Risk Start Outreach-Agrees to Participate-CM program) 07/03/2024 Patient Outreach [address] [address] Nel Yoon MD Care Coordination ([facility]/SOBIA Sarmiento#1- ADT Outreach-LVM) 07/03/[address] [address] Nel Yoon MD Care Management ([facility] chart review) from Last 3 Months Immunizations Name Administration Dates Next Due Influenza Injectable Quadriv alant Preservative Free IIV4 MDCK 04/06/2021 Influenza injectable quadrivalent preservative f ree 01/12/2023,01/18/2022 Pfizer Covid-19 Vaccine 12+ 04/19/2023 RSV Bivalent 05/08/2024 Social History Tobacco Use Types Packs/Day Years Used Date Smoking Tobacco: Never Passive Smoke Exposure: Never Smokeless Tobacco: Never Tobacco Cessation:Counseling Given: Not Answered Housing Stability Answer Date Recorded What is [...] Orientation Straight 02/28/2022 10 :40 AM EDT Last Filed Vital Signs Vital Sign Reading Time Taken Comments Blood Pressure 138/80 09/05/2024 11:05 AM EDT Pulse 90 09/05/2024 11:05 AM EDT Temperature 36.7 ??C (98 ??F) 09/05/2024 11:05 AM EDT Respiratory Rate 16 09/05/2024 11:05 AM EDT Oxygen Saturation - - Inhaled Oxygen Concentration - - Weight 95.1 kg (209 lb 9.6 oz) 09/05/2024 11:05 AM EDT Height 176.5 cm (5' 9.49 ) 09/05/2024 11:05 AM E DT Body Mass Index 30.52 09/05/2024 11:05 AM EDT Plan of Treatment Upcoming Encounters Date Type Department Care Team (Late st Contact Info) Description 10/16/2024 10:30 AM EDT Office Visit [facility] [address] [place] [address] Nel Yoon MD [address] [place], [place] [phone] Health Maintenance Due Date Last Done Comments Depression Screening 1987 Alcohol/Substance Use Screening 1999 Family Planning (PISQ) 2002 Hepatitis B Vaccines (1 of 3 - 19+ 3-dose series) 2006 Pap Smear 09/21/2024 09/21/2021 SDOH Screening 07/12/2025 07/12/2024 Tobacco Screening 09/05/2025 09/05/2024 Cervical Cancer Screening 09/21/2026 HPV/Cotest 09/21/2026 09/21/2021 DTaP/Tdap/Td Vaccines (2 - Td or Tdap) 04/16/2034 04/16/2024 Zoster Vaccines (1 of 2) 2037 RSV Patients and Patients Aged 60 years or older (1 - 1-dose 75+ series) 2062 05/08/2024 HIV Screening Completed 07/22/2021 Hepatitis C Screening Completed 07/22/2021 COVID-19 Vaccine Completed 12/29/2023, , 04/15/2022, Additional history exists Influenza Vaccine Completed 12/29/2023, , 01/18/2022, Additional history exists HIB Vaccines Aged Out No longer eligi ble based on patient's age to complete this topic HPV Vaccines Aged Out No longer eligi ble based on patient's age to complete this topic Hepatitis A Vaccines Aged Out No long er eligible based on patient's age to complete this topic IPV Vaccines Aged Out No longer eligi ble based on patient's age to complete this topic Meningococcal Vaccine Aged Out No mateo kay eligible based on patient's age to complete this topic Pneumococcal Vaccine: Pediatrics (0 to 5 Years) and At-Risk Patients (6 to 49) Years) Aged Out No longer eligible based on patient's age to complete this topic RSV under 20 months Aged Out No longe r eligible based on patient's age to complete this topic Rotavirus Vaccines Aged Out No longer eligible based on patient's age to complete this topic Procedures Procedure Name Priority Date/Time Associated Diagnosis Comments THINPREP IMAGING PAP AND HPV MRNA E6/E7 WITH REFLEX TO HPV 16,18/45 Routine 09/21/2021 3:52 PM EDT ZZZ HISTORICAL HEPATITIS C AB W/REFL TO HCV RNA, QN, PCR Routine 07/22/2021 10:36 AM EDT HIV 1/2 ANTIGEN/ANTIBODY, FOURTH GENERATION W/RFL Routine 07/22/2021 10:36 AM EDT from Last 3 Months or Most Recently Relevant to Health Maintenance Results * THINPREP TIS PAP AND HPV mRNA E6/E7 WITH REFLEX TO HPV 16,18/45 (09/21/2021 3:52 PM EDT) Clinical Information: None given [facility] COMMENT SEE COMMENT [facility] Comment: EXPLANATORY NOTE: ? The Pap is a screening test for cervical cancer. It is ?? not a diagnostic test and is subject to false negative ?? and false positive results. It is most reliable when a ?? satisfactory sample, regularly obtained, is submitted ?? with relevant clinical findings and history, and when ?? the Pap result is evaluated along with historic and ?? current clinical information. ?? COMMENT: This Pap test has been evaluated with computer assisted technology. [facility] Turkey Roll Maker: SEE COMMENT [facility] Comment: SARAVANAN, CT(ASCP) CT screening location: [address] ??[id number] HPV nRNA E6/E7 Not Detected Not Detected [facility] Comment: Methodology: Health Information Managers-Mediated Amplification This assay detects E6/E7 viral messenger RNA (mRNA) from 14 high-risk HPV types (16,18,31,33,35,39,45,51,52,56,58,59,66,68). ? The analytical performance characteristics of this assay have been determined by [email or web address]. The modifications have not been cleared or approved by the FDA. This assay has been validated pursuant to the CLIA regulations and is used for clinical purposes. ?? For additional information, please refer to http://[employer]/faq/FEI473v6 (This link if provided for information/ educational purposes only.) Interpretation/Re sult: Negative for intraepithelial lesion or malignancy. [facility] LMP: 08/29/2021 [facility] Prev. BX: NONE GIVEN [facility] Prev. PAP: UNSURE [facility] SOURCE: None given [facility] Statement Of Adequacy: SEE COMMENT [facility] Comment: Satisfactory for evaluation. Endocervical/transformation zone component present. 09/21/2021 3:52 PM EDT Tami Deal CNM LAB PATHOLOGY ORDERABLES Final Result Performing Organization Address [facility] de Phone Number [facility] [address] [place] [address], * HEPATITIS C AB W/REFL TO HCV RNA, QN, PCR (07/22/2021 10:36 AM EDT) HEPATITIS C ANTIBODY NON-REACT LUDY NON-REACT LUDY [facility] INDEX 0.02 <1.00 [facility] Comment: ?? HCV antibody was non-reactive. There is no laboratory ?? evidence of HCV infection. ?? In most cases, no further action is required. However, if recent HCV exposure is suspected, a test for HCV RNA (test code 48198) is suggested. ?? For additional information please refer to http://education.[employer]/faq/IPE59o8 (This link is being provided for informational/ educational purposes only.) ?? 07/22/2021 10:3 6 AM EDT Nel Yoon MD HISTORICAL/NON ORDERABLE LABS Fi nal Result Performing Organization Address [facility] Co de Phone Number [facility] [address] * HIV 1/2 ANTIGEN/ANTIBODY,FOURTH GENERATION W/RFL (07/22/2021 10:36 AM EDT) HIV-1/2 ANTIGEN AND ANTIBODIES, 4TH GENERATION W/ REFLEX NON-REACT LUDY NON-REACT LUDY [facility] Comment: HIV-1 antigen and HIV-1/HIV-2 antibodies were not detected. There is no laboratory evidence of HIV infection. ?? PLEASE NOTE: This information has been disclosed to you from records whose confidentiality may be protected by state law. ??If your state requires such protection, then the state law prohibits you from making any further disclosure of the information without the specific written consent of the person to whom it pertains, or as otherwise permitted by law. A general authorization for the release of medical or other information is NOT sufficient for this purpose. ? For additional information please refer to http://[employer]/faq/UWN230 (This link is being provided for informational/ educational purposes only.) ? The performance of this assay has not been clinically validated in patients less than 2 years old. ?? 07/22/2021 10:3 6 AM EDT us Nel Yoon MD LAB BLOOD ORDERABLES Final Resul t [facility] [address] from Last 3 Months or Most Recently Relevant to Health Maintenance Insurance [facility] C3 Care Teams Exercise Science Instructor Relationship Specialty Start Date End Date Nel Yoon MD [address] [place] [phone] PCP - General Family Medicine 07/22/21
--- OUTSIDE RECORDS SUMMARY | 2024-09-05 16:38 | XMS_ITS | Encounter Summary ---
Author Organization [employer] Address [address] [place] [address] Care Team Providers Care Mechanic'S Assistant Name Role Phone Nel Yoon MD Primary Care Provider [phone] Reason for Visit * Reason Comments Med Refill Encounter Details Date Type Department Care Team ([facility] st Contact Info) Description 07/15/2024 Refill [facility] [address] [place], [place] [phone] Yvonne Clifford MD [address] [place], [place] [phone] Ulcerative colitis with complication, unspecified location (CMS/[facility]) Social History Tobacco Use [...] Access Q2 Not on file 07/12/2024 Comments Unknown Sex and Gender Information Value [...] 10:30 AM EDT Office Visit [facility] [address] [place] [address] Nel Yoon MD [address] [place] [address] documented as of this encounter Visit Diagnoses Diagnosis Ulcerative colitis with complication, unspecified location (CMS/[facility]) documented in this encounter Care Teams Mechanic'S Assistant Relationship Specialty Start Date End Date Nel Yoon MD [address] [place] [phone] PCP - General Family Medicine 07/22/21 documented as of this encounter
--- OUTSIDE RECORDS SUMMARY | 2024-09-05 16:38 | XMS_ITS | Encounter Summary ---
Author Organization [email or web address] Address [address] 7[address] [place] [address] Care Team Providers Care Research Chief Engineer Name Role Phone Nel Yoon MD Primary Care Provider [phone] Encounter Details Date Type Department Care Team ([facility] st Contact Info) Description 09/05/2024 Telephone [facility] [address] [place], [place] [phone] David Babcock MD [address] [place] [address] Social History Tobacco Use Types Packs/Day Years Used Date Smoking Tobacco: Never Passive Smoke Exposure: Never Smokeless Tobacco: Never Housing Stability Answer Date Recorded What is [...] encounter Miscellaneous Notes * Telephone Encounter - David Babcock MD - 09/05/2024 11:55 AM EDT Request for an appointment with PCP. documented in this encounter Plan of Treatment Upcoming Encounters Date Type Department Care Team (Late st Contact Info) Description 10/16/2024 10:30 AM EDT Office Visit [facility] [address] [place] [address] Nel Yoon MD [address] [place] [phone] documented as of this encounter Visit Diagnoses Not on filedocumented in this encounter Care Teams Research Chief Engineer Relationship Specialty Start Date End Date Nel Yoon MD [address] [place] [phone] PCP - General Family Medicine 07/22/21 documented as of this encounter
--- OUTSIDE RECORDS SUMMARY | 2024-09-05 16:38 | XMS_ITS | Clinical Summary ---
Author Organization [facility] [address] [place] [address] [place] [phone] Phone Care Team Providers Care Machine Tool Builder Name Role Phone Nel Yoon MD Primary Care Provider [phone] Allergies Active Allergy Reactions Criticality Noted Date Comments Gluten 11/15/2023 Infliximab High 11/29/2023 Sulfa (Sulfonamide Antibiotics) 10/29 Medications docosahexaenoic acid 200 mg capsule Take by mouth. Activ e CHOLINE ORAL Take by mouth. Ac tive mesalamine (CANASA) 1,000 mg suppository UNWRAP AND INSERT 1 SUPPOSITORY RECTALLY EVERYDAY AT BEDTIME 90 suppository 3 07/18/19 25 Active norethindrone (MONICA,SOLEDAD,H EATHER,MICRONOR ) 0.35 mg tablet Take 1 tablet (0.35 mg total) by mouth 1 (one) time each day. 84 tablet 3 08/17/19 25 026 Active Active Problems Problem Noted Date Diagnosed Date Fever 106 degrees F or over 07/11/2024 Varicose veins of vulva and perineum 04/03/2024 Encounter for supervision of other normal , first trimester 03/26/2024 Overview (05/02/2024): 1. [place] site: [address] ([facility]) 2. Delivery site: [facility] 3. Mobile Mommas: 4. Dating criteria: 5. Blood type: Lab Results Component Value Date BLDTYPE A NEGATIVE 11/29/2023 6. Genetic screening: Date: Result: Low risk female; Horizon negative; AFP screen negative 6. GBS: Date: 7. FOB name: Rayray OJEDA [birth year], 8. Plans A. Epidural or other pain management - B. Labor support identified - C. Tdap - Date: 04/16, Flu - Date: 12/28 D. Breast or Bottle feed: breast E. Baby's name - F. Circumcision - 9. Hospital Course: History of depression, currently preg nant 03/26/2024 Overview (03/26/2024): After 1st child was born. Pt contributes it to lack of sleep and daughter was colicky Ulcerative colitis (CMS/HCC V24, CMS/[facility] V28) Overview (02/19/2024): Pt has a colostomy bag since 2016 GI is at [facility] She normally gets scope evaluation q 2 yrs She is taking mesalamine suppository daily to prevent rectal swelling / bleeding. Per mfm more at risk for GDM and recommends referral to nutrition - ,<Rn She used this in previous and gi recommends she continue using during Mfm consult: 12-20-[address] ruvalcaba at [facility] - DRAGAN,RN Rh negative state in antepartum period Overview (04/06/2024): Pt states her blood type is A neg, pt states fob is also a negative so pt declines rhogam 04/03/2024-Antibody screen negative- pt declines rhogam Resolved Problems Problem Noted Date Diagnosed Date Resolved Date Uterine contractions 07/01/2024 025 AMA (advanced maternal age) multigravida 35+ 07/03/2024 Overview (02/19/2024): ASA 162 mg daily at 12w through delivery- per mfm not needed. Referral for NIPT if desired Detailed US Weekly NST at 36 weeks Assessment & Plan (03/06/2024 9:26 AM EST): Instruct on routine 3rd trimester changes, comfort measures and warning signs to call. Encounters Date Type Department Care Team Description 08/16/2024 10:30 AM EDT Visit Obstetrics [address] [phone] Maria Antonia Matos CNM Routine follow-up (Primary Dx); Breast feeding status of mother; Screening for depression; Pelvic floor relaxation 07/11/2024 6:30 PM EDT - 07/11/2024 7:25 PM EDT Hospital Encounter [address] [phone] Humberto Ortiz MD Discharge Disposition: Home or Self Care 07/11/2024 Telephone Ob[address]etric[address] [phone] Maria Antonia Matos CNM Release of Information 07/01/2024 3:24 PM EST - 07/03/2024 11:45 AM EST Hospital Encounter [address] [phone] Ed Farley MD Discharge Disposition: Home or Self Care 06/26/2024 9:00 AM EST Routine Obstetrics & [address] [phone] Maria Antonia Matos CNM 39 weeks gestation of (Primary Dx); Multigravida of advanced maternal age in third trimester; Other ulcerative colitis with other complication (CMS/HCC V24, CMS/[facility] V28) 06/20/2024 9:00 AM EST Routine Obstetrics & [address] [phone] Maria Antonia Matos CNM Multigravida of advanced maternal age in third trimester (Primary Dx); 38 weeks gestation of ; Other ulcerative colitis with other complication (CMS/HCC V24, CMS/HCC V28) 06/13/2024 10:00 AM EST Routine Obstetrics & Gynecology [address] [phone] Maria Antonia Matos, EVGENY 37 weeks gestation of (Primary Dx); Multigravida of advanced maternal age in third trimester; care, subsequent , third trimester from Last 3 Months Immunizations Name Administration Dates Next Due COVID-19 (Pfizer/Comirnaty) 12yo and older 12/28 Influenza Quadravalent, MDCK , 0.5ml, preservative free (Flucelvax) 6mo and older 04/06/2021 Influenza Quadrivalent, 0.5m l, preservative free (Fluarix; FluLaval; Fluzone) ages 6mo and older (Afluria) 3yo and older 01/12/2023,01/18/2022 Influenza trivalent, MDCK, 0 .5mL, preservative free (Flucelvax) 6mo and older 12/29/2023 Influenza, Unspecified 12/29/2023 Moderna (age 6mo & older) Bi valent, COVID-19, 0.5 mL or 0.25 mL dosage 04/15/2022 FireDrillMe SARS-CoV-2 COVID-19, mRNA, LNP-S, preservative free 12/29/2023 RSV, bivalent, protein subun it RSVpreF, 0.5mL, Preservative Free (ABRYSVO) 60yo and older or 32 through 36 wks of 05/08/2024 Tdap Tetanus diptheria acell ular pertussis (Boostrix; Adacel) 7yo and older 04/16/2024 04/16/2034 Surgical History Surgery Date Site/Laterality Comments OTHER SURGICAL HISTORY 06/2015 PROCEDURE: [place] COLECTOMY PARTIAL W/ANASTOMOSIS TONSILLECTOMY PROCEDURE: HISTORICAL TONSILLECTOMY Medical History Medical History Date Comments Ulcer, colon DX:Ulcer, colon; COMMENT: ulcerative colitis Attention deficit disorder DX:At tention deficit disorder depression DX:Postpar bart depression; COMMENT: with 1st child Family History Medical History Relation Name Comments Other: Other Father ulcerative coli tis Mental illness Maternal Grandfather Other: Other Maternal Grandmother osteope rosis , asthma Hyperlipidemia Mother Other: Other Paternal Grandmother dementi a No Known Problems Sister Relation Name Status Comments Father Alive Maternal Grandfather Maternal Grandmother Mother Alive Paternal Grandfather Alive Paternal Grandmother Alive Sister Alive Social History Tobacco Use Types Packs/Day Years Used Date Smoking Tobacco: Never Smokeless Tobacco: Never Tobacco Cessation:Counseling Given: Not Answered Alcohol Use Standard Drinks/Week Comments Never 0 (1 standard drink = 0.6 oz pur e alcohol) Housing Instability Answer Date Recorde d Are you worried that in the next 2 months you may not have stable housing? No 04/02/2024 Food Access & Nutrition Answer Date Rec orded Do you have access to a vari ety of food including fruits and vegetables? Yes 04/02/2024 Access to Healthcare Answer Date Record ed Within the last 3 months, ho w many times did you visit the emergency department for your medical care? 0 04/02/2024 Health Literacy Answer Date Recorded How often do you need to hav e someone help you when you read instructions, pamphlets, or other written material from your doctor or pharmacy? Never 04/02/2024 Caregiver: How often do you need to have someone help you when you read instructions, pamphlets, or other written material from your doctor or pharmacy? Not on file 04/02/2024 Financial Risk Answer Date Recorded How hard is it for you to pa y for the very basics like food, housing, medical care, and air conditioning / heating? Not very hard 04/02/2024 Transportation Answer Date Recorded Has the lack of transportati on kept you from meetings, work, or from getting things needed for daily living? No Has the lack of transportati on kept you from medical appointments or from getting medications? No 04/02/2024 Social Isolation Answer Date Recorded How often do you feel lonely or isolated from those around you? Sometimes 04/02/2024 Food Risk Answer Date Recorded Within the past 12 months we worried whether our food would run out before we got money to buy more. Never true 04/02/2024 Within the past 12 months th e food we bought just didn't last and we didn't have money to get more. Never true 04/02/2024 Dependent Care Answer Date Recorded Do you need help finding or paying for care for your loved ones. For example, director child or elderly care for an older adult? No 04/02/2024 Education Answer Date Recorded Do you think completing more education or training, like finishing a GED, going to college, or learning a trade, would be helpful for you? No 04/02/2024 Employment and Income Answer Date Recor ded During the last four weeks, have you been actively looking for work? No 04/02/2024 Living Situation Answer Date Recorded What is your living situation? 1 06/03/2023 Interpersonal Safety Answer Date Record ed Physical Abuse 07/01/2024 Verbal Abuse 07/01/2024 Comments No Sex and Gender Information Value Date Recorded Sex Assigned at Female 07/01/2024 3:43 PM EST Legal Sex Female 8:49 PM EST Gender Identity Female 07/01/2024 3:43 PM EST Sexual Orientation Straight 07/01/2024 3: 43 PM EST Occupation Industry Job Start Date Job End Date Homemaker Not on file Not on file Not on file Obstetrics History Para Term AB IAB SAB Ectopic Multiple Livin g Live Births 4 4 4 0 4 4 Date Outcome GA Total Labor Labor//3rd Weight Sex Type Anes PTL Alma Rosa A1 A5 Name Clin 2012 Term 41w 0d 2807 g (99 oz) F Vag-S pont None N Livin g Evange line Nisly Complications: Intolera nce Delivery Location:[place] Comments:episotomy, ul cerative colitis flare ups - predisone and remicade, cytomegalovirus colitis 2014 Term 40w 0d 3090 g (109 oz) F Vag-S pont None N Livin g dre nisly Complications:None Delivery Location:[place] Comments:ulcerative co litis flare ups,cytomegalovirus colitis 2019 Term 39w 6d 3629 g (128 oz) M Vag-S pont None N Livin g [place] Nisly Complications:None Delivery Location:[place] 2024 Term 40w 3d 10h 47m 10h 15m/0h 25m/0h 07m 3480 g (122.8 oz) F Vag-S pont Nitrou s Oxide N Livin g 8 9 Meenakshiit Laureano Means and, CNM Complications:None Delivery Location:[facility] Last Filed Vital Signs Vital Sign Reading Time Taken Comments Blood Pressure 133/88 08/16/2024 10:35 AM EDT Pulse 84 08/16/2024 10:35 AM EDT Temperature 37.6 ??C (99.7 ??F) 07/11/2024 7:00 PM ED T Respiratory Rate 16 07/11/2024 6:33 PM EDT Oxygen Saturation 98% 07/11/2024 6:33 PM EDT Inhaled Oxygen Concentration - - Weight 95.7 kg (211 lb) 08/16/2024 10:35 AM EDT Height 172.7 cm (5' 8 ) 07/01/2024 3:31 PM EST Body Mass Index 32.08 07/01/2024 3:31 PM EST Plan of Treatment Health Maintenance Due Date Last Done Comments Hepatitis B Vaccines (1 of 3 - 19+ 3-dose series) 2006 Cholesterol Screening (Lipid Panel) 05/26/2023 COVID-19 Vaccine ( season) 2024 12/29/2023, 12/29/2023, 04/19/2023, Additional history exists Social Influencers of Health Screening 04/02/2025 04/02/2024 Depression Screening 08/15/2025 08/15/2024 Cervical Cancer Screening: HPV 01/02/2029 01/03/2024 DTaP,Tdap,and Td Vaccines (2 - Td or Tdap) 04/16/2034 04/16/2024 HIV Screening Completed 11/29/2023, 07/22/2021 Hepatitis C Screening Completed 11/29/2023 Influenza Vaccine Completed 12/29/2023, , 01/12/2023, Additional history exists HIB Vaccines Aged Out [...] on patient's age to complete this topic MMR Vaccines Aged Out No longer eligi ble based on patient's age to complete this topic Meningococcal ACWY Vaccine Aged Out N o longer eligible based on patient's age to complete this topic Meningococcal B Vaccine Aged Out No l onger eligible based on patient's age to complete this topic Pneumococcal Vaccine: Pediatrics (0 to 5 Years) and At-Risk Patients (6 to 64 Years) Aged Out No longer eligible based on patient's age to complete this topic RSV Immunization Patients Under 20 months Aged Out No longer eligible based on patient's age to complete this topic Varicella Vaccines Aged Out No longer eligible based on patient's age to complete this topic Procedures Procedure Name Priority Date/Time Associated Diagnosis Comments CBC WITH AUTO DIFFERENTIAL STAT 07/11/2024 7:01 PM EDT CBC AND DIFFERENTIAL STAT 07/11/2024 7:01 PM EDT SST - GOLD Routine 07/11/2024 7:00 PM EDT EXTRA TUBES Routine 07/11/2024 7:00 PM EDT SST - GOLD Routine 07/02/2024 5:57 AM EST EXTRA TUBES Routine 07/02/2024 5:57 AM EST COMPLETE BLOOD COUNT Routine 07/02/2024 5:57 AM EST THYROID STIMULATING HORMONE WITH REFLEX TO FREE T4 AND FREE T3 STAT 07/01/2024 9:03 PM EST HEMOGLOBIN STAT 07/01/2024 9:03 PM EST HEMATOCRIT STAT 07/01/2024 9:03 PM EST CBC WITH AUTO DIFFERENTIAL STAT 07/01/2024 5:30 PM EST TYPE AND SCREEN STAT 07/01/2024 5:30 PM EST CBC AND DIFFERENTIAL STAT 07/01/2024 5:30 PM EST TREPONEMA PALLIDUM ANTIBODY WITH REFLEX TO RPR AND PARTICLE AGGLUTINATION Routine 07/01/2024 5:30 PM EST HM HPV Routine 01/03/2024 HM HEPATITIS C SCREENING Routine 11/29/2023 from Last 3 Months or Most Recently Relevant to Health Maintenance Results * (ABNORMAL) CBC auto differential (07/11/2024 7:01 PM EDT) Only the most recent of2 resultswithin the time period is included. WBC 9.2 4.8 - 10.8 K/mcL LAB HEMETOLOGY [facility] RBC 3.60(L) 3.80 - 4.80 M/mcL LAB HEMETOLOGY METHOD 07/11/2024 7:[address] [facility] Hemoglobin 10.8(L) 11.5 - 16.0 g/dL LAB HEMETOLOGY METHOD 07/11/2024 7:[address] [facility] Hematocrit 32.3(L) 35.0 - 47.0 % LAB HEMETOLOGY METHOD 07/11/2024 7:14 [facility] MCV 90.7 79.0 - 98.0 FL LAB HEMETOLOGY METHOD 07/11/2024 7:[facility] MCH 30.3 27.0 - 32.0 pcg LAB HEMETOLOGY METHOD 07/11/2024 7:[address] [facility] MCHC 33.4 32.0 - 37.0 g/dL LAB HEMETOLOGY METHOD 07/11/2024 7:14 [facility] RDW 12.9 11.0 - 15.0 % LAB HEMETOLOGY METHOD 07/11/2024 7:14 [facility] Platelets 326 130 - 400 K/mcL LAB HEMETOLOGY METHOD 07/11/2024 7:[address] [facility] MPV 9.0 7.0 - 11.0 FL LAB HEMETOLOGY METHOD 07/11/2024 7:14 [facility] NRBC 0.0 <1.0 % LAB HEMETOLOGY METHOD 07/11/2024 7:[address] [facility] NRBC Absolute 0.00 <0.10 K/mcL LAB HEMETOLOGY METHOD 07/11/2024 7:[address] [facility] Neutrophils Relative 83.0 % LAB HEMETOLOGY METHOD 07/11/2024 7:[address] [facility] Lymphocytes Relative 8.8 % LAB HEMETOLOGY METHOD 07/11/2024 7:[address] [facility] Monocytes Relative 5.4 % LAB HEMETOLOGY METHOD 07/11/2024 7:[address] [facility] Eosinophils Relative 0.7 % LAB HEMETOLOGY METHOD 07/11/2024 7:[address] [facility] Basophils Relative 0.5 % LAB HEMETOLOGY METHOD 07/11/2024 7:[address] [facility] Immature Granulocytes Relative 1.6 % LAB HEMETOLOGY METHOD 07/11/2024 7:[address] [facility] Neutrophils Absolute 7.63(H) 1.50 - 7.00 K/mcL LAB HEMETOLOGY METHOD 07/11/2024 7:[address] [facility] Lymphocytes Absolute 0.81(L) 1.00 - 5.00 K/mcL LAB HEMETOLOGY METHOD 07/11/2024 7:[address] [facility] Monocytes Absolute 0.50 0.20 - 1.00 K/mcL LAB HEMETOLOGY METHOD 07/11/2024 7:[address] [facility] Eosinophils Absolute 0.06 0.00 - 0.50 K/mcL LAB HEMETOLOGY METHOD 07/11/2024 7:[address] [facility] Basophils Absolute 0.05 0.00 - 0.20 K/mcL LAB HEMETOLOGY METHOD 07/11/2024 7:14 PM EDT [facility] Immature Granulocytes Absolute 0.15(H) 0.00 - 0.03 K/[facility] LAB HEMETOLOGY METHOD 07/11/2024 7:14 PM EDT [facility] Blood Venous blood specimen / Unknown Venipuncture / Unknown 07/11/2024 7:01 PM EDT 07/11/2024 7:08 PM EDT Adelaida Brandt CNM LAB BLOOD ORDERABLES Final R esult Performing Organization Address City/[facility]/ZIP Co de Phone Number [facility] [address] [place] [address], [place] [phone] * SST tube (07/11/2024 7:00 PM EDT) Only the most recent of2 resultswithin the time period is included. Extra Tube Hold for add-ons. 07/11/2024 9:01 PM EDT [facility] Comment:Auto resulted. Blood Venous blood specimen / Unknown 07/11/2024 7:00 PM EDT 07/11/2024 7:09 PM EDT Humberto Ortiz MD LAB BLOOD ORDERABLES Final R esult Performing Organization Address City/[facility]/ZIP Co de Phone Number [facility] [address] [place] [address], [place] [phone] * (ABNORMAL) Complete blood count (07/02/2024 5:57 AM EST) WBC 13.3(H) 4.8 - 10.8 K/[facility] HEMETOLOGY METHOD 07/02/2024 6:15 AM EST [facility] RBC 3.30(L) 3.80 - 4.80 M/[facility] LAB HEMETOLOGY METHOD 07/02/2024 6:15 AM EST [facility] Hemoglobin 10.0(L) 11.5 - 16.0 g/dL LAB HEMETOLOGY METHOD 07/02/2024 6:15 AM [facility] Hematocrit 29.0(L) 35.0 - 47.0 % LAB HEMETOLOGY METHOD 07/02/2024 6:15 AM [facility] MCV 87.9 79.0 - 98.0 FL LAB HEMETOLOGY METHOD 07/02/2024 6:15 AM EST [facility] MCH 30.3 27.0 - 32.0 pcg LAB HEMETOLOGY METHOD 07/02/2024 6:15 AM [facility] MCHC 34.5 32.0 - 37.0 g/dL LAB HEMETOLOGY METHOD 07/02/2024 6:15 AM [facility] RDW 13.1 11.0 - 15.0 % LAB HEMETOLOGY METHOD 07/02/2024 6:15 AM [facility] Platelets 184 130 - 400 K/mcL LAB HEMETOLOGY METHOD 07/02/2024 6:15 AM [facility] MPV 10.0 7.0 - 11.0 FL LAB HEMETOLOGY METHOD 07/02/2024 6:15 AM [facility] NRBC 0.0 <1.0 % LAB HEMETOLOGY METHOD 07/02/2024 6:15 AM [facility] NRBC Absolute 0.00 <0.10 K/mcL LAB HEMETOLOGY METHOD 07/02/2024 6:15 AM [facility] Blood Venous blood specimen / Unknown Venipuncture / Unknown 07/02/2024 5:57 AM EST 07/02/2024 6:04 AM EST us Radha Wyatt CNM LAB BLOOD ORDERABLES Final Result [facility] [address] [place] [address], [place] [phone] * Thyroid stimulating hormone with reflex to free t4 and free t3 (07/01/2024 9:03 PM EST) [facility] TSH 1.53 0.40 - 4.00 mcIU/mL LAB CHEMISTRY METHOD 07/01/2024 9:44 PM EST [facility] Blood Venous blood specimen / Unknown Venipuncture / Unknown 07/01/2024 9:03 PM EST 07/01/2024 9:07 PM EST Ed Farley MD LAB BLOOD ORDERABLES Fi nal Result [facility] [address] [place] [address], [place] [phone] * (ABNORMAL) Hemoglobin (07/01/2024 9:03 PM EST) [facility] Hemoglobin 11.1(L) 11.5 - 16.0 g/dL LAB HEMETOLOGY METHOD 07/01/2024 9:18 PM EST [facility] Blood Venous blood specimen / Unknown Venipuncture / Unknown 07/01/2024 9:03 PM EST 07/01/2024 9:07 PM EST Ed Farley MD LAB BLOOD ORDERABLES Fi nal Result [facility] [address] [place] [address], [place] [phone] * (ABNORMAL) Hematocrit (07/01/2024 9:03 PM EST) [facility] Hematocrit 32.4(L) 35.0 - 47.0 % LAB HEMETOLOGY METHOD 07/01/2024 9:18 PM EST [facility] Blood Venous blood specimen / Unknown Venipuncture / Unknown 07/01/2024 9:03 PM EST 07/01/2024 9:07 PM EST Ed Farley MD LAB BLOOD ORDERABLES Fi nal Result [facility] [address] [place] [address], [place] [phone] * Treponema pallidum antibody with reflex to RPR and particle agglutination (07/01/2024 5:30 PM EST) [facility] T. Pallidum Antibodies Negative Negative LAB CHEMISTRY METHOD 07/01/2024 6:52 PM EST [facility] Blood Venous blood specimen / Unknown Venipuncture / Unknown 07/01/2024 5:30 PM EST 07/01/2024 5:51 PM EST Ed Farley MD LAB BLOOD ORDERABLES Fi nal Result Performing Organization Address City/[facility]/ZIP Co de Phone Number [facility] [address] [place] [address], [place] [phone] * Type and screen (07/01/2024 5:30 PM EST) [facility] ABO Group A 07/01/2024 8:02 PM EST [facility] Rh Type Negative 07/01/2024 8:02 PM EST [facility] Antibody Screen Negative 07/01/2024 8:02 PM EST [facility] Blood Venous blood specimen / Unknown Venipuncture / Unknown 07/01/2024 5:30 PM EST 07/01/2024 5:51 PM EST Ed Farley MD LAB BLOOD BANK TEST ORD ERABLES Final Result Performing Organization Address City/[facility]/ZIP Co de Phone Number [facility] [address] [place] [address], [place] [phone] * Hm Cervical Cancer Screening: HPV (01/03/2024) Cervical Cancer Screening: HPV abstracted Historical Provider HEALTH MAINTENANCE Final Result * Hepatitis C Screening (11/29/2023) Hepatitis C Screening abstracted Historical Provider HEALTH MAINTENANCE Final Result from Last 3 Months or Most Recently Relevant to Health Maintenance Insurance MEDICAID - [place] Advance Directives * Full Code - Confirmed (Latest Code Status on File) Date Activated Date Inactivated Comments 07/11/2024 6:47 PM 07/11/2024 10:20 PM This code s tatus was ascertained in the following way: Code status discussion: discussion with patient To update the patient's code status, place a code status order. Do not modify or discontinue any currently active code status orders. * Full Code - Confirmed Date Activated Date Inactivated Comments 07/01/2024 5:04 PM 07/03/2024 1:55 PM Care Teams Machine Tool Builder Relationship Specialty Start Date End Date Nel Yoon MD [address] [place] [address] PCP - General 11/15/23
--- OUTSIDE RECORDS SUMMARY | 2024-09-05 16:38 | XMS_ITS | Encounter Summary ---
Author Organization [employer] Address [address] [place] [address] Care Team Providers Care [employer] Media Specialist Name Role Phone Nel Yoon MD Primary Care Provider Reason for Visit * Reason Comments Fungus Encounter Details Date Type Department Care Team ([facility] Contact Info) Description 09/05/2024 11:20 AM EDT Office Visit [facility] [address] [place] [address] [phone] David Babcock MD [address] [place], [place] [phone] Irritant contact dermatitis associated with digestive stoma (Primary Dx); Fungal infection Social History Tobacco Use Types Packs/Day Years [...] t he electric, gas, oil or water [employer] threatened to shut off services in your [...] AM EDT documented as of this encounter Last Filed Vital Signs Vital Sign Reading [...] Mass Index 30.52 09/05/2024 11:05 AM EDT documented in this encounter Progress Notes * David Babcock MD - 09/05/2024 11:20 AM EDT Subjective History was provided by the patient. Diamond Schulz is a 39 y.o. female who presents to [facility] for a concern of fungal infection at the ostomysite. Underlying ulcerative colitis s/p ileostomy (2017). Reports increased redness and irritation surrounding the stoma 2 days ago. Also noted small amount of purulent discharge. Denies F/C. Has a daughter Clarity (born 07/01/2024). Exclusively currently. Tried OTC topical Miconazole but no significant improvement. Inquiring about oral anti- fungal agent as ostomy bag is challenging to attach with the topical medication. Has allergy to Sulfa medications (hives and throat swelling). Objective Vitals: 09/05/24 1105 BP: 138/80 BP Location: Left arm Patient Position: Sitting BP Cuff Size: Adult Pulse: 90 Resp: 16 Temp: 98 ??F (36.7 ??C) TempSrc: Temporal Weight: 209 lb 9.6 oz (95.1 kg) Height: 5' 9.49 (1.765 m) Physical Exam Vitals reviewed. Constitutional: General: She is not in acute distress. Appearance: Normal appearance. She is not ill-appearing, toxic-appearing or diaphoretic. HENT: Nose: Nose normal. Mouth/Throat: Pharynx: Oropharynx is clear. Eyes: Extraocular Movements: Extraocular movements intact. Conjunctiva/sclera: Conjunctivae normal. Pulmonary: Effort: Pulmonary effort is normal. Abdominal: General: There is no distension. Palpations: Abdomen is soft. Tenderness: There is no guarding. Comments: Right-sided ostomy with erythema surrounding the stoma Musculoskeletal: General: Normal range of motion. Cervical back: Neck supple. Neurological: General: No focal deficit present. Mental Status: She is alert and oriented to person, place, and time. Psychiatric: Mood and Affect: Mood normal. Behavior: Behavior normal. Diamond was seen today for fungus. Diagnoses and all orders for this visit: Irritant contact dermatitis associated with digestive stoma (Primary) - Wound culture; Future Fungal infection - fluconazole (Diflucan) 150 MG tablet; Take 1 tablet (150 mg) by mouth every other day for 4 doses. Patient presents to [facility] due to a concern of fungal infection at the ostomy site Has an ileostomy bag due to underlying UC s/p surgery in 2017 No significant improvement with OTC Miconazole topical Also it is challenging to use a topical medication at the site of ostomy bag attachment Will Rx Diflucan 150mg PO every other day for 4 doses Potential adverse effects of the medication reviewed The relative dose (RID) discussed [employer] [facility] LactMed utilized for dosing confirmation Advised to contact the clinic if persistent or worsening symptoms Given history of purulent discharge, the area was swabbed for Wound Culture Will request an appointment with PCP for her routine care documented in this encounter Plan of Treatment Upcoming Encounters Date Type Department Care Team ([facility] Contact Info) Description 10/16/2024 10:30 AM EDT Office Visit [address] [phone] Nel Yoon MD [address] [place] [address] Scheduled Orders Name Type Priority Associated Diagnoses Orde r Schedule Wound culture Microbiology Routine Irritant contact dermatitis associated with digestive stoma Expected: 09/05/2024 (Approximate), Expires: 09/05/2025 documented as of this encounter Visit Diagnoses Diagnosis Irritant contact dermatitis associated with digestive stoma- Primary Fungal infection Other and unspecified mycoses documented in this encounter Care Teams [employer] Media Specialist Relationship Specialty Start Date End Date Nel Yoon MD [address] [place] [address] PCP - General Family Medicine 07/22/21 documented as of this encounter
--- OUTSIDE RECORDS SUMMARY | 2024-09-05 16:38 | XMS_ITS | Encounter Summary ---
Author Organization [employer] Address [address] [place] [address] Care Team Providers Care Skull Chopper Name Role Phone Nel Yoon MD Primary Care Provider [phone] Reason for Visit * Reason Comments Med Refill Encounter Details Date Type Department Care Team ([facility] st Contact Info) Description 07/13/2024 Refill [facility] [address] [place], [place] [phone] Nel Yoon MD [address] [place], [place] [phone] Ulcerative colitis with complication, unspecified location (CMS/[facility]) Social History Tobacco Use Types Packs/Day Years [...] Description 10/16/2024 10:30 AM EDT Office Visit [facility] [address] [place] [address] Nel Yoon MD [address] [place] [address] documented as of this encounter Visit Diagnoses Diagnosis Ulcerative colitis with complication, unspecified location (CMS/[facility]) documented in this encounter Care Teams Skull Chopper Relationship Specialty Start Date End Date Nel Yoon MD [address] [place] [phone] PCP - General Family Medicine 07/22/21 documented as of this encounter
== END 2024-09-05 16:36 | disposition home or self-care (01) ==
LOC: HO.LNP 16:35
PROVIDERS: Visit Provider Family Medicine
DX: L24.B1 Irritant contact dermatitis related to digestive stoma or fistula (principal)
CPT/HCPCS: 87070; 87077; 87186; 87205

== ENCOUNTER 2024-09-13 17:51 | Outpatient (REF) | payer MEDICAID, SELFPAY ==
--- OUTSIDE RECORDS SUMMARY | 2024-09-13 17:53 | XMS_ITS | Clinical Summary ---
Author Organization [facility] [address] [place] [address] [place] [phone] Phone Care Team Providers Care Finishing Supervisor Plastic Sheets Name Role Phone Nel Yoon MD Primary Care Provider [phone] Allergies Active Allergy Reactions Criticality Noted Date [...] trimester 03/26/2024 Overview (05/02/2024): 1. [facility] site: [address] ([facility]) 2. Delivery site: [facility] 3. Mobile Mommas: 4. Dating criteria: [...] daughter was colicky Ulcerative colitis (CMS/HCC V24, CMS/[facility] V28) Overview (02/19/2024): Pt has a colostomy bag since 2016 GI is at [facility] She normally gets scope evaluation q 2 yrs She is taking mesalamine suppository daily to prevent rectal swelling / bleeding. Per mfm more at risk for GDM and recommends referral to nutrition - ,<Rn She used this in previous and gi recommends she continue using during Mfm consult: 12-20-[address] ruvalcaba at [facility],RN Rh negative state in [...] Description 08/16/2024 10:30 AM EDT Visit Obstetrics & [address] [address] Maria Antonia Matos CNM Routine follow-up (Primary Dx); Breast feeding status of mother; Screening for depression; Pelvic floor relaxation 07/11/2024 6:30 PM EDT - 07/11/2024 7:25 PM EDT Hospital Encounter [address] [phone] Humberto Ortiz MD Discharge Disposition: Home or Self Care 07/11/2024 Telephone Obstetrics & [address] [address] Maria Antonia Matos CNM Release of Information 07/01/2024 3:24 PM EST - 07/03/2024 11:45 AM EST Hospital Encounter [address] [phone] Ed Farley MD Discharge Disposition: Home or Self Care 06/26/2024 9:00 AM EST Routine Obstetrics & Gynecology [address] [address] Maria Antonia Matos CNM 39 weeks gestation of (Primary Dx); Multigravida of advanced maternal age in third trimester; Other ulcerative colitis with other complication (CMS/HCC V24, CMS/[facility] V28) 06/20/2024 9:00 AM EST Routine Obstetrics & [address] [address] Maria Antonia Matos CNM Multigravida of advanced maternal age in third trimester (Primary Dx); 38 weeks gestation of ; Other ulcerative colitis with other complication (CMS/HCC V24, CMS/HCC V28) from Last 3 Months Immunizations Name Administration [...] 0.5 mL or 0.25 mL dosage 04/15/2022 Pfizer SARS-CoV-2 COVID-19, mRNA, LNP-S, preservative free 12/29/2023 RSV, bivalent, protein subun it RSVpreF, 0.5mL, Preservative Free (ABRYSVO) 60yo and older or 32 through 36 wks of 05/08/2024 Tdap Tetanus diptheria acell ular pertussis (Boostrix; Adacel) 7yo and older 04/16/2024 04/16/2034 Surgical History Surgery Date Site/Laterality Comments OTHER SURGICAL HISTORY 06/2015 PROCEDURE: [place] COLECTOMY PARTIAL W/ANASTOMOSIS TONSILLECTOMY PROCEDURE: HISTORICAL TONSILLECTOMY [...] care for your loved ones. For example, child care assistant or elderly care for an older adult? [...] g Live Births 4 4 4 0 0 0 0 0 0 4 4 Date Outcome GA Total Labor Labor/2nd/3rd Weight Sex Type Anes PTL [place] A1 A5 Name Clin 2012 Term 41w 0d 2807 g (99 oz) F Vag-S pont None N Livin g Evange line Nisly Complications: Intolera nce Delivery Location:[place] Comments:episotomy, ul cerative colitis flare ups - predisone and remicade, cytomegalovirus colitis 2014 Term 40w 0d 3090 g (109 oz) F Vag-S pont None N Livin g dre nisly Complications:None Delivery Location:[place] Comments:ulcerative co litis flare ups,cytomegalovirus colitis 2019 Term 39w 6d 3629 g (128 oz) M Vag-S pont None N Livin g [place] Nisly Complications:None Delivery Location:[place] 2024 Term 40w 3d 10h 47m 10h 15m/0h 25m/0h 07m 3480 g (122.8 oz) F Vag-S pont Nitrou s Oxide N Livin g 8 9 Meenakshiit Laureano Means and, CNM Complications:None Delivery Location:[facility] ([facility] Last Filed Vital Signs Vital [...] 07/11/2024 7:[address] [facility] RBC 3.60(L) 3.80 - 4.80 M/mcL LAB HEMETOLOGY METHOD 07/11/2024 7:[address] [facility] Hemoglobin 10.8(L) 11.5 - 16.0 g/dL LAB HEMETOLOGY METHOD 07/11/2024 7:[address] [facility] Hematocrit 32.3(L) 35.0 - 47.0 % LAB HEMETOLOGY METHOD 07/11/2024 7:[address] [facility] MCV 90.7 79.0 - 98.0 FL LAB HEMETOLOGY METHOD 07/11/2024 7:[address] [facility] MCH 30.3 27.0 - 32.0 pcg LAB HEMETOLOGY METHOD 07/11/2024 7:[address] [facility] MCHC 33.4 32.0 - 37.0 g/dL LAB HEMETOLOGY METHOD 07/11/2024 7:[address] [facility] RDW 12.9 11.0 - 15.0 % LAB HEMETOLOGY METHOD 07/11/2024 7:[address] [facility] Platelets 326 130 - 400 K/mcL LAB HEMETOLOGY METHOD 07/11/2024 7:[address] [facility] MPV 9.0 7.0 - 11.0 FL LAB HEMETOLOGY METHOD 07/11/2024 7:[address] [facility] NRBC 0.0 <1.0 % LAB [...] PM [facility] Immature Granulocytes Absolute 0.15(H) 0.00 - 0.03 K/mcL LAB HEMETOLOGY METHOD 07/11/2024 7:[address] [facility] Blood Venous blood specimen / Unknown Venipuncture / Unknown 07/11/2024 7:01 PM EDT 07/11/2024 7:08 PM EDT Adelaida Brandt CNM LAB BLOOD ORDERABLES Final R esult Performing Organization Address City/[facility]/ZIP Co de Phone Number [facility] [address] [place] [address], [place] [phone] * SST tube (07/11/2024 7:00 PM EDT) Only the most recent of2 resultswithin the time period is included. Pathologist [facility] Extra Tube Hold for add-ons. 07/11/2024 9:01 PM EDT [facility] Comment:Auto resulted. Blood Venous blood specimen / Unknown 07/11/2024 7:00 PM EDT 07/11/2024 7:09 PM EDT Humberto Oritz MD LAB BLOOD ORDERABLES Final R esult Performing Organization Address City/[facility]/ZIP Co de Phone Number [facility] [address] [place] [address], [place] [phone] * (ABNORMAL) Complete blood count (07/02/2024 5:57 AM EST) [facility] WBC 13.3(H) 4.8 - 10.8 K/[facility] LAB HEMETOLOGY METHOD 07/02/2024 6:15 AM EST [facility] RBC 3.30(L) 3.80 - 4.80 /[facility] LAB HEMETOLOGY METHOD 07/02/2024 6:15 AM EST [facility] Hemoglobin 10.0(L) 11.5 - 16.0 g/dL LAB HEMETOLOGY METHOD 07/02/2024 6:15 AM [facility] Hematocrit 29.0(L) 35.0 - 47.0 % LAB HEMETOLOGY METHOD 07/02/2024 6:15 AM [facility] MCV 87.9 79.0 - 98.0 FL LAB HEMETOLOGY METHOD 07/02/2024 6:15 AM EST [facility] MCH 30.3 27.0 - 32.0 pcg LAB HEMETOLOGY METHOD 07/02/2024 6:15 AM [facility] MCHC 34.5 32.0 - 37.0 g/dL LAB HEMETOLOGY METHOD 07/02/2024 6:15 AM EST [facility] RDW 13.1 11.0 - 15.0 % LAB HEMETOLOGY METHOD 07/02/2024 6:15 AM [facility] Platelets 184 130 - 400 K/mcL LAB HEMETOLOGY METHOD 07/02/2024 6:15 AM [facility] MPV 10.0 7.0 - 11.0 FL LAB HEMETOLOGY METHOD 07/02/2024 6:15 AM EST [facility] NRBC 0.0 <1.0 % LAB HEMETOLOGY METHOD 07/02/2024 6:15 AM [facility] NRBC Absolute 0.00 <0.10 K/mcL LAB HEMETOLOGY METHOD 07/02/2024 6:15 AM [facility] Blood Venous blood specimen / Unknown Venipuncture / Unknown 07/02/2024 5:57 AM EST 07/02/2024 6:04 AM EST us Radha PEÑA LAB BLOOD ORDERABLES Final Result [facility] [address] [place] [address], * Thyroid stimulating hormone with reflex to free t4 and free t3 (07/01/2024 9:03 PM EST) TSH 1.53 0.40 - 4.00 mcIU/mL LAB CHEMISTRY METHOD 07/01/2024 9:44 PM EST [facility] Blood Venous blood specimen / Unknown Venipuncture / Unknown 07/01/2024 9:03 PM EST 07/01/2024 9:07 PM EST Ed Farley MD LAB BLOOD ORDERABLES Fi nal Result [facility] [address] [place] [address], [place] [phone] * (ABNORMAL) Hemoglobin (07/01/2024 9:03 PM EST) Hemoglobin 11.1(L) 11.5 - 16.0 g/dL LAB HEMETOLOGY METHOD 07/01/2024 9:18 PM EST [facility] Blood Venous blood specimen / Unknown Venipuncture / Unknown 07/01/2024 9:03 PM EST 07/01/2024 9:07 PM EST Ed Farley MD LAB BLOOD ORDERABLES Fi nal Result Performing Organization Address City/[facility]/ZIP Co de Phone Number [facility] [address] [place] [address], [place] [phone] * (ABNORMAL) Hematocrit (07/01/2024 9:03 PM EST) Hematocrit 32.4(L) 35.0 - 47.0 % LAB HEMETOLOGY METHOD 07/01/2024 9:18 PM EST [facility] Blood Venous blood specimen / Unknown Venipuncture / Unknown 07/01/2024 9:03 PM EST 07/01/2024 9:07 PM EST Ed Farley MD LAB BLOOD ORDERABLES Fi nal Result [facility] [address] [place] [address], [place] [phone] * Treponema pallidum antibody with reflex to RPR and particle agglutination (07/01/2024 5:30 PM EST) [facility] T. Pallidum Antibodies Negative Negative LAB CHEMISTRY METHOD 07/01/2024 6:52 PM EST [facility] Blood Venous blood specimen / Unknown Venipuncture / Unknown 07/01/2024 5:30 PM EST 07/01/2024 5:51 PM EST Ed Farley MD LAB BLOOD ORDERABLES Fi nal Result [facility] [address] [place] [address], [place] [phone] * Type and screen (07/01/2024 5:30 PM EST) [facility] ABO Group A 07/01/2024 8:02 PM EST [facility] Rh Type Negative 07/01/2024 8:02 PM EST [facility] Antibody Screen Negative 07/01/2024 8:02 PM EST [facility] Blood Venous blood specimen / Unknown Venipuncture / Unknown 07/01/2024 5:30 PM EST 07/01/2024 5:51 PM EST Ed Farley MD LAB BLOOD BANK TEST ORD ERABLES Final Result [facility] [address] [place] [address], [place] [phone] * Cervical Cancer Screening: HPV (01/03/2024) [facility] Cervical Cancer Screening: HPV abstracted Melissa Santiago MD HEALTH MAINTENANCE Final Result * Hepatitis C Screening (11/29/2023) [facility] Hepatitis C Screening abstracted us Historical Provider HEALTH MAINTENANCE Final Result from [...] 5:04 PM 07/03/2024 1:55 PM Care Teams Finishing Supervisor Plastic Sheets Relationship Specialty Start Date End Date Nel Yoon MD [address] [place] [phone] PCP - General 11/15/23
--- OUTSIDE RECORDS SUMMARY | 2024-09-13 17:53 | XMS_ITS | Encounter Summary ---
Author Organization [employer] Address [address] [place] [address] [address] [place] [address] Care Team Providers Care Administrative Manager Name Role Phone Nel Yoon MD Primary Care Provider [phone] Reason for Visit * Reason Comments Med Refill Encounter Details Date Type Department Care Team ([facility] Contact Info) Description 08/20/2023 Refill [facility] [address] [place] [address] [phone] Nel Yoon MD [address] [place] [address] [phone] Ulcerative colitis with complication, unspecified location (CMS/HCC) [...] Upcoming Encounters Date Type Department Care Team ([facility] Contact Info) Description 10/16/2024 10:30 AM EDT Office Visit [facility] [address] [place] [address] [phone] Nel Yoon MD [address] [place] [address] [phone] documented as of this encounter Visit Diagnoses Diagnosis Ulcerative colitis with complication, unspecified location (CMS/HCC) documented in this encounter Care Teams Administrative Manager Relationship Specialty Start Date End Date Nel Yoon MD [address] [place] [address] PCP - General Family Medicine 07/22/21 documented as of this encounter
--- OUTSIDE RECORDS SUMMARY | 2024-09-13 17:53 | XMS_ITS | Encounter Summary ---
Author Organization [employer] Address [address] [place] [address] [address] [place] [address] Care Team Providers Care Signal Repairer Name Role Phone Nel Yoon MD Primary Care Provider [phone] Encounter Details Date Type Department Care Team (Late Contact Info) Description 06/06/2023 Orders Only [facility] [address] [place] [phone] Nel Yoon MD [address] [place] [address] [phone] Fatigue, unspecified type (Primary Dx); Sleep disturbance [...] Description 10/16/2024 10:30 AM EDT Office Visit [facility] [address] [place] [address] [phone] Nel Yoon MD [address] [place] [address] [phone] documented as of this encounter Visit Diagnoses Diagnosis Fatigue, unspecified type- Primary Sleep disturbance Unspecified sleep disturbance documented in this encounter Care Teams Signal Repairer Relationship Specialty Start Date End Date Nel Yoon MD [address] [place] [phone] PCP - General Family Medicine 07/22/21 documented as of this encounter
--- OUTSIDE RECORDS SUMMARY | 2024-09-13 17:53 | XMS_ITS | Encounter Summary ---
Author Organization [employer] Address [address] [place] [address] 7 [place] [address] Care Team Providers Care Plate Painter Name Role Phone Nel Yoon MD Primary Care Provider [phone] Encounter Details Date Type Department Care Team (Late st Contact Info) Description 08/12/2022 Orders Only [facility] [address] [place] [address] [phone] Nel Yoon MD [address] [place] [address] [phone] POTS (postural orthostatic tachycardia syndrome) (Primary Dx); History of COVID-19; Ulcerative colitis with complication, unspecified location (CMS/[facility]) Social History Tobacco Use Types Packs/Day [...] Description 10/16/2024 10:30 AM EDT Office Visit [facility] [address] [place] [address] [phone] Nel Yoon MD [address] [place] [address] [phone] documented as of this encounter Procedures Procedure [...] EDT) Hepatitis B Surface Ag Negative Negative [facility] 08/22/2022 8:46 AM EDT 08/22/2022 8:46 AM EDT us [facility] External Provider LAB BLO OD ORDERABLES Final Result [facility] [address] [place] [phone] * Hepatitis B Core Antibody, Total (08/22/2022 8:46 AM EDT) Hepatitis B Core Antibody Nonreactive Nonreactive [facility] 08/22/2022 8:46 AM EDT 08/22/2022 8:46 AM EDT [facility] External Provider LAB BLO OD ORDERABLES Final Result Performing Organization Address [facility] Co de Phone Number [facility] [address] [place] [phone] * Hepatitis B Surface Antibody, Qualitative (08/22/2022 8:46 AM EDT) ~Hepatitis B Surface Antibody REACTIVE Nonreactive [facility] Comment:REACTIVE: > 11.99 mI U/mL 08/22/2022 8:46 AM EDT 08/22/2022 8:46 AM EDT [facility] External Provider LAB BLO OD ORDERABLES Final Result Performing Organization Address [facility] Phone Number [facility] [address] [place] [address] [phone] * Hepatitis A Antibody IgG (08/22/2022 8:46 AM EDT) Pathologist [facility] Hepatitis A Antibody IgG REACTIVE Nonreactive [facility] Comment:The presence of IgG anti-HAV implies past HAV infection(recent or distant) or vaccination against HAV. 08/22/2022 8:46 AM EDT 08/22/2022 8:46 AM EDT [facility] External Provider LAB BLO OD ORDERABLES Final Result Performing Organization Address [facility] Co de Phone Number [facility] [address] [place] [address] [phone] * (ABNORMAL) Vitamin B12/Folate, Serum Panel (08/22/2022 8:46 AM EDT) Pathologist [facility] Vitamin B12 1,551(H) 200 - 900 pg/mL [facility] Comment:NORMAL 200-900 PG/ML INDETERMINATE 160-199 PG/ML DEFICIENT < 160 PG/ML Folate 14.9 > or = 4.0 ng/mL [facility] Comment:Reference Values:> o r = 4.0 ng/mL< 4.0 ng/mL suggests folate deficiency Methotrexate, aminopterin and folinic acid(leucovorin) are chemotherapeutic agents whose molecularstructures are similar to folate; therefore, the Architectfolate assay cannot be used for patients using these drugs. 08/22/2022 8:46 AM EDT 08/22/2022 8:46 AM EDT [facility] External Provider LAB BLO OD ORDERABLES Final Result Performing Organization Address [facility] Co de Phone Number [facility] [address] [place] [address] [phone] * C-reactive Protein (08/22/2022 8:46 AM EDT) C Reactive Protein <0.10 < or = 0.50 mg/dL [facility] 08/22/2022 8:46 AM EDT 08/22/2022 8:46 AM EDT [facility] External Provider LAB BLO OD ORDERABLES Final Result Performing Organization Address [facility] Co de Phone Number [facility] [address] [place] [address] [phone] * (ABNORMAL) Comprehensive Metabolic Panel (08/22/2022 8:46 AM EDT) Sodium 139 135 - 145 mmol/L [facility] Potassium 5.2(H) 3.3 - 5.1 mmol/L [facility] Chloride 104 96 - 108 mmol/L [facility] Carbon Dioxide 27 22 - 29 mmol/L [facility] Anion Gap 13 12 - 20 [facility] Urea Nitrogen (BUN) 13 9 - 16 mg/dL [facility] Creatinine, Serum 0.80 0.5 - 1.4 mg/dL [facility] Estimated Glomerular Filt Rate >60 [facility] Comment:NOTE: For -Am erican individuals, multiply the result by 1.210.Chronic Kidney Disease: Estimated GFR < 60 mL/min/1.68u6Xnywmo Kidney Disease: Estimated GFR < 15 mL/min/1.73m2 Glucose 92 60 - 115 mg/dL [facility] Calcium 9.8 8.4 - 10.2 mg/dL [facility] Bilirubin, Total 0.5 0.0 - 1.0 mg/dL [facility] Aspartate Amino Transferase 25 5 - 31 U/L [facility] Alanine Aminotransferase 34(H) 0 - 31 U/L [facility] Total Protein 7.6 6.5 - 8.0 g/dL [facility] Albumin Level 4.8 3.5 - 5.0 g/dL [facility] Alkaline Phosphatase 51 39 - 117 U/L [facility] 08/22/2022 8:46 AM EDT 08/22/2022 8:46 AM EDT us [facility] External Provider LAB BLO OD ORDERABLES Final Result [facility] [address] [place] [phone] * CBC (08/22/2022 8:46 AM EDT) White Blood Count 6.2 4.8 - 10.8 X10*3/uL [facility] Red Blood Count 5.25 4.20 - 5.50 X10*6/uL [facility] Hemoglobin 14.7 12.0 - 16.0 g/dl [facility] Hematocrit 44.1 37.0 - 47.0 % [facility] Mean Corpuscular Volume 84.0 80.0 - 98.0 fL [facility] Mean Corpuscular Hemoglobin 28.0 27.0 - 33.0 pg [facility] Mean Corpuscular HGB Conc 33.3 31.0 - 35.0 g/dl [facility] Red Cell Distribution Width 13.1 11.0 - 16.0 % [facility] Platelet Count 285 160 - 400 X10*3/uL [facility] Mean Platelet Volume 9.9 9.4 - 12.3 fL [facility] NRBC Pct Auto 0.0 0.0 - 0.2 /100WBC [facility] NRBC Abs Auto 0.000 0.0 - 0.012 X10*3/uL [facility] 08/22/2022 8:46 AM EDT 08/22/2022 8:46 AM EDT us [facility] External Provider LAB BLO OD ORDERABLES Final Result [facility] [address] [place] [phone] documented in this encounter Visit Diagnoses Diagnosis POTS (postural orthostatic tachycardia syndrome)- Primary Unspecified tachycardia History of COVID-19 Ulcerative colitis with complication, unspecified location (CMS/HCC) documented in this encounter Care Teams Plate Painter Relationship Specialty Start Date End Date Nel Yoon MD [address] [place] [phone] PCP - General Family Medicine 07/22/21 documented as of this encounter
--- OUTSIDE RECORDS SUMMARY | 2024-09-13 17:53 | XMS_ITS | Encounter Summary ---
Author Organization [employer] Address [address] [place] [address] 7 [place] [address] Care Team Providers Care Code And Test Clerk Name Role Phone Nel Yoon MD Primary Care Provider [phone] Encounter Details Date Type Department Care Team (Late st Contact Info) Description 09/27/2022 Orders Only [facility] [address] [place] [address] [phone] Nel Yoon MD [address] [place] [address] [phone] Social History Tobacco Use Types Packs/Day Years [...] 10/16/2024 10:30 AM EDT Office Visit [facility] [address] [place] [phone] Nel Yoon MD [address] [place] [address] [phone] documented as of this encounter Visit Diagnoses Not on filedocumented in this encounter Care Teams Code And Test Clerk Relationship Specialty Start Date End Date Nel Yoon MD [address] [place] [address] [phone] PCP - General Family Medicine 07/22/21 documented as of this encounter
--- OUTSIDE RECORDS SUMMARY | 2024-09-13 17:53 | XMS_ITS | Encounter Summary ---
Author Organization [employer] Address [address] [facility] [address] [facility] [address] [place] [address] Care Team Providers Care Paint Grinder Name Role Phone Nel Yoon MD Primary Care Provider [phone] Reason for Visit * Reason Comments Med Refill Encounter Details Date Type Department Care Team ([facility] st Contact Info) Description 07/15/[address] [facility] [address] [place], [place] [phone] Yvonne Clifford MD [address] [place], [place] [phone] Ulcerative colitis with complication, unspecified location (CMS/[facility]) Social History Tobacco Use Types Packs/Day Years [...] Description 10/16/2024 10:30 AM EDT Office [address] [facility] [address] [place] [address] Nel Yoon MD [address] [place] [phone] documented as of this encounter Visit Diagnoses Diagnosis Ulcerative colitis with complication, unspecified location (CMS/[facility]) documented in this encounter Care Teams Paint Grinder Relationship Specialty Start Date End Date Nel Yoon MD [address] [place] [address] [phone] PCP - General Family Medicine 07/22/21 documented as of this encounter
--- OUTSIDE RECORDS SUMMARY | 2024-09-13 17:53 | XMS_ITS | Encounter Summary ---
Author Organization [employer] Address [address] [place] [address] Care Team Providers Care Networking Specialist Name Role Phone Nel Yoon MD Primary Care Provider [phone] Reason for Visit * Reason Comments Med Refill Encounter Details Date Type Department Care Team ([facility] st Contact Info) Description 07/13/2024 Refill [facility] [address] [place], [place] [phone] Nel Yoon MD [address] [place], [place] [phone] Ulcerative colitis with complication, unspecified location (CMS/[facility]) Social History Tobacco Use Types Packs/Day [...] Description 10/16/2024 10:30 AM EDT Office Visit [facility] [address] [place] [address] Nel Yoon MD [address] [place] [address] documented as of this encounter Visit Diagnoses Diagnosis Ulcerative colitis with complication, unspecified location (CMS/[facility]) documented in this encounter Care Teams Networking Specialist Relationship Specialty Start Date End Date Nel Yoon MD [address] [place] [phone] PCP - General Family Medicine 07/22/21 documented as of this encounter
--- OUTSIDE RECORDS SUMMARY | 2024-09-13 17:53 | XMS_ITS | Encounter Summary ---
Author Organization [employer] Address [address] [place] [address] Care Team Providers Care Lotteries Agent Name Role Phone Nel Yoon MD Primary Care Provider [phone] Reason for Visit * Reason Onset Date Comments Appointment Request 07/17/2024 Encounter Details Date Type Department Care Team ([facility] st Contact Info) Description 07/17/2024 Telephone [facility] [address] [place], [place] [phone] Nel Yoon MD [address] [place], [place] [phone] Appointment Request Social History Tobacco Use Types [...] due to receiving a message from provider. Insurance Verify Rep informed pt that there is no Availability and that a message would be sent. Contact pt at [phone] documented in this encounter Plan of Treatment Upcoming Encounters Date Type Department Care Team (Late st Contact Info) Description 10/16/2024 10:30 AM EDT Office Visit [facility] [address] [place] [address] Nel Yoon MD [address] [place] [address] documented as of this encounter Visit Diagnoses Not on filedocumented in this encounter Care Teams Lotteries Agent Relationship Specialty Start Date End Date Nel Yoon MD [address] [place] [address] PCP - General Family Medicine 07/22/21 documented as of this encounter
--- OUTSIDE RECORDS SUMMARY | 2024-09-13 17:54 | XMS_ITS | Encounter Summary ---
Author Organization [employer] Address [address] [facility] [address] [place] [address] Care Team Providers Care Cable Assembler Name Role Phone Nel Yoon MD Primary Care Provider [phone] Reason for Visit * Reason Comments UTI Encounter Details Date Type Department Care Team ([facility] st Contact Info) Description 09/13/2024 11:20 AM EDT Office Visit [facility] [address] [place], [place] [phone] Faye Pineda NP [address] [place], [place] [phone] Lower abdominal pain (Primary Dx); Dysuria Social History Tobacco Use Types Packs/Day Years [...] Sign Reading Time Taken Comments Blood Pressure 124/93 09/13/2024 11:16 AM EDT Pulse 68 09/13/2024 11:16 AM EDT Temperature 36.6 ??C (97.8 ??F) 09/13/2024 11:16 AM E DT Respiratory Rate 16 09/13/2024 11:16 AM EDT Oxygen Saturation - - Inhaled Oxygen Concentration - - Weight 95.5 kg (210 lb 9.6 oz) 09/13/2024 11:16 AM EDT Height 176.5 cm (5' 9.49 ) 09/13/2024 11:16 AM E DT Body Mass Index 30.66 09/13/2024 11:16 AM EDT documented in this encounter Progress Notes * Faye Pineda NP - 09/13/2024 11:20 AM EDT Subjective: Diamond Schulz is a 39 y.o. female who presents to the office for a sick visit. HPI Constant pressure and frequency No history of elevated blood sugar 10 weeks post Blood yesterday, maybe menses had menses 6 weeks post , Now on ocps, Breast feeding exclusively Problem List[1] Review of Systems Constitutional: Negative for activity change and appetite change. HENT: Negative for congestion and dental problem. Respiratory: Negative for apnea and chest tightness. Cardiovascular: Negative for chest pain. Gastrointestinal: Negative for abdominal distention. Genitourinary: Positive for difficulty urinating, dysuria and urgency. Negative for genital sores and hematuria. Musculoskeletal: Negative for arthralgias. Allergies[2] Objective: Visit Vitals BP (!) 124/93 (BP Location: Left arm, Patient Position: Sitting, BP Cuff Size: Adult) Pulse 68 Temp 97.8 ??F (36.6 ??C) (Oral) Resp 16 Ht 5' 9.49 (1.765 m) Wt 210 lb 9.6 oz (95.5 kg) Unknown BMI 30.66 kg/m?? OB Status Recent Smoking Status Never BSA 2.16 m?? Physical Exam Constitutional: Appearance: Normal appearance. She is obese. Cardiovascular: Rate and Rhythm: Regular rhythm. Pulmonary: Breath sounds: Normal breath sounds. Musculoskeletal: Cervical back: Neck supple. Neurological: Mental Status: She is alert. Assessment/Plan: Problem List Items Addressed This Visit Lower abdominal pain - Primary Dysuria Current Assessment & Plan Suggestive of UTI, based on frequency and pressure Reviewed ddx and s/s to report Pt is continue as planned Will update once culture has been resulted Relevant Medications cephalexin (Keflex) 500 MG capsule Other Relevant Orders POCT urinalysis dipstick manually resulted (Completed) Culture, Urine, Routine Current Medications[3] [1] Patient Active Problem List Diagnosis Ulcerative colitis (CMS/HCC) Lower abdominal pain Dysuria [2] Allergies Allergen Reactions Sulfa Antibiotics Anaphylaxis [3] Current Outpatient Medications Medication Sig Dispense Refill cephalexin (Keflex) 500 MG capsule Take 1 capsule (500 mg) by mouth 3 times daily for 7 days. 21 capsule 0 mesalamine (Canasa) 1000 MG suppository UNWRAP AND INSERT 1 SUPPOSITORY RECTALLY EVERYDAY AT BEDTIME 90 suppository 0 montelukast (Singulair) 10 MG tablet Take 1 tablet (10 mg) by mouth in the morning. 30 tablet 11 No current facility-administered medications for this visit. documented in this encounter Miscellaneous Notes * Assessment & Plan Note - Faye Pineda NP - 09/13/2024 11:40 AM EDTAssociated Problem(s): Dysuria Suggestive of UTI, based on frequency and pressure Reviewed ddx and s/s to report Pt is continue as planned Will update once culture has been resulted documented in this encounter Plan of Treatment Upcoming Encounters Date Type Department Care Team (Late st Contact Info) Description 10/16/2024 10:30 AM EDT Office Visit [facility] [address] [place] [address] Nel Yoon MD [address] [place] [address] Scheduled Orders Name Type Priority Associated Diagnoses Orde r Schedule Culture, Urine, Routine Microbiology Routine Dysuria Ordered: 09/13/2024 documented as of this encounter Procedures Procedure Name Priority Date/Time Associated Diagnosis Comments POCT URINALYSIS DIPSTICK Routine 09/13/2024 11:22 AM EDT Dysuria documented in this encounter Results * (ABNORMAL) POCT urinalysis dipstick manually resulted (09/13/2024 11:22 AM EDT) Color, UA Yellow Clarity, UA Clear Glucose, UA Negative Bilirubin, UA Negative Ketones, UA Negative Spec Grav, UA 1.025 Blood, UA Positive(A) Negative, None Detected Comment:LARGE pH, UA 5.5 Protein, UA Trace Comment:100 mg/dl Urobilinogen, UA 0.2 Leukocytes, UA Moderate(A) Negative, Rare, Trace Nitrite, UA Negative Negative, None Detected Urine 09/13/2024 11:2 2 AM EDT Result [facility] Faye Pineda NP POINT OF CARE TEST ENTER/EDIT OR DERABLES Final Result documented in this encounter Visit Diagnoses Diagnosis Lower abdominal pain- Primary Abdominal pain, other specified site Dysuria documented in this encounter Care Teams Cable Assembler Relationship Specialty Start Date End Date Nel Yoon MD [address] [place] [address] PCP - General Family Medicine 07/22/21 documented as of this encounter
--- OUTSIDE RECORDS SUMMARY | 2024-09-13 17:54 | XMS_ITS | Clinical Summary ---
Author Organization [employer] Address [address] [place] [address] 7t [place] [address] Care Team Providers Care Sane Rn Name Role Phone Nel Yoon MD Primary Care Provider [phone] Allergies Active Allergy Reactions Criticality Noted Date Comments Sulfa Antibiotics Anaphylaxis High 09/05/2024 Medications montelukast (Singulair) 10 MG tablet Take 1 tablet (10 mg) by mouth in the morning. 30 tablet 11 09/28/19 23 Active mesalamine (Canasa) 1000 MG suppositoryIndi cations:Ulcerat ludy colitis with complication, unspecified location (CMS/HCC) UNWRAP AND INSERT 1 SUPPOSITORY RECTALLY EVERYDAY AT BEDTIME 90 suppository 02/14/20 24 Active cephalexin (Keflex) 500 MG capsuleIndicati ons:Dysuria Take 1 capsule (500 mg) by mouth 3 times daily for 7 days. 21 capsule 09/14/19 25 025 Active fluconazole (Diflucan) 150 MG tabletIndicatio ns:Fungal infection Take 1 tablet (150 mg) by mouth every other day for 4 doses. 4 tablet 09/06/19 25 025 Active Problems Problem Noted Date Diagnosed Date Lower abdominal pain 09/13/2024 Dysuria 09/13/2024 Assessment & Plan (09/13/2024 11:40 AM EDT): Suggestive of UTI, based on frequency and pressure Reviewed ddx and s/s to report Pt is continue as planned Will update once culture has been resulted Ulcerative colitis 08/12/2022 Encounters Date Type Department Care Team Description 09/13/2024 11:20 AM EDT Office Visit [facility] [address] [place] [phone] Faye Pineda NP Lower abdominal pain (Primary Dx); Dysuria 09/13/[address] [address] Nel Yoon MD Nurse Triage 09/05/2024 11:20 AM EDT [facility] [address] [address] David Babcock MD Irritant contact dermatitis associated with digestive stoma (Primary Dx); Fungal infection 09/05/2024 Telephone [facility] [address] [address] David Babcock MD 08/08/2024 Patient Outreach [address] [address] Nel Yoon MD Care Coordination ([facility]/[place] Sarmiento- R/S missed CM [place] appt) 08/05/[address] [address] Nel Yoon MD Care Management ([facility] initial assessment-lvm) 08/02/2024 Patient Outreach [address] [address] Nel Yoon MD Care Coordination ([facility] Sarmiento- CM HRMaternity [place] appt reminder) 07/17/[address] [address] Nel Yoon MD Appointment Request 07/15/[address] [address] Yvonne Clifford MD Ulcerative colitis with complication, unspecified location ([facility]/HCC) 07/13/[address] [address] Nel Yoon MD Ulcerative colitis with complication, unspecified location (CMS/HCC) 07/12/2024 Population Health Risk Score [facility] (C3) [address] [place] [phone] Provider, Population Health Generic 07/12/2024 Patient Outreach [facility] [address] [place] [phone] Nel Yoon MD Care Coordination ([facility]/W [place] Alejandro-Risk Start Outreach-Agrees to Participate-CM program) 07/03/2024 Patient Outreach [address] [address] Nel Yoon MD Care Coordination ([facility]/W [place] Alejandro#1- ADT Outreach-LVM) 07/03/[address] [address] Nel Yoon MD Care Management ([facility] chart review) from Last 3 Months Immunizations Immunization Administration Dates Next Due Influenza Injectable Quadriv [...] Mass Index 30.66 09/13/2024 11:16 AM EDT Plan of Treatment Upcoming Encounters Date Type Department Care Team (Late st Contact Info) Description 10/16/2024 10:30 AM EDT Office Visit [facility] [address] [place] [address] Nel Yoon MD [address] [place] [address] Health Maintenance Due Date Last Done Comments Depression Screening 1987 Alcohol/Substance Use Screening 1999 Family Planning (PISQ) 2002 Hepatitis B Vaccines (1 of 3 - 19+ 3-dose series) 2006 Pap Smear 09/21/2024 09/21/2021 SDOH Screening 07/12/2025 07/12/2024 Tobacco Screening 09/13/2025 09/13/2024 Cervical Cancer Screening 09/21/2026 HPV/Cotest 09/21/2026 09/21/2021 DTaP/Tdap/Td Vaccines (2 - Td or Tdap) 04/16/2034 04/16/2024 Zoster Vaccines (1 of 2) 2037 HIV Screening Completed 07/22/2021 Hepatitis C Screening Completed 07/22/2021 COVID-19 Vaccine Completed 12/29/2023, , 04/15/2022, Additional history exists Influenza Vaccine Completed 12/29/2023, , 01/18/2022, Additional history exists RSV Patients and Patients Aged 60 years or older Completed 05/08/2024 HIB Vaccines Aged Out No longer eligi [...] DIPSTICK Routine 09/13/2024 11:22 AM EDT Dysuria GRAM STAIN Routine 09/05/2024 12:00 AM EDT THINPREP IMAGING PAP AND HPV MRNA E6/E7 WITH REFLEX TO HPV 16,18/45 Routine 09/21/2021 3:52 PM EDT ZZZ HISTORICAL HEPATITIS C AB W/REFL TO HCV RNA, QN, PCR Routine 07/22/2021 10:36 AM EDT HIV 1/2 ANTIGEN/ANTIBODY, FOURTH GENERATION W/RFL Routine 07/22/2021 10:36 AM EDT from Last 3 Months or Most Recently Relevant to Health Maintenance Results * (ABNORMAL) POCT urinalysis dipstick manually [...] Detected Urine 09/13/2024 11:2 2 AM EDT Faye Pineda NP POINT OF CARE TEST ENTER/EDIT OR DERABLES Final Result * Gram stain (09/05/2024 12:00 AM EDT) 09/05/2024 09/05/2024 Comment:Abdomen Narrative [facility] - 09/08/2024 7:58 AM EDT ABDOMINAL WALL AT OSTOMY SITE Gram stain results: 2+ polys 1+ epithelial cells 1+ red blood cells 2+ Gram-positive cocci ABDOMINAL WALL AT OSTOMY SITE Routine Culture Report - external Routine Culture 1+ Mixed geovani Staphylococcus aureus Quant Org ID 4+ Enterococcus gallinarum Quant Org ID 4+ VRE Notification(A) * * This is a Vancomycin-resistant Enterococcus * *(A) Escherichia coli Quant Org ID 2+ Staphylococcus aureus: Clindamycin <=0.25(S) Staphylococcus aureus: Erythromycin <=0.25(S) Staphylococcus aureus: Levofloxacin 0.25(S) Staphylococcus aureus: Oxacillin 0.5(S) Staphylococcus aureus: Penicillin-G >=0.5(R) Staphylococcus aureus: Tetracycline <=1(S) Staphylococcus aureus: Trimethoprim/Sulfamethoxazole <=10(S) Enterococcus gallinarum: Ampicillin <=2(S) Enterococcus gallinarum: Linezolid 2(S) Enterococcus gallinarum: Tigecycline <=0.12(S) Enterococcus gallinarum: Vancomycin 2(R) Escherichia coli: Ampicillin <=2(S) Escherichia coli: Cefazolin (Non-Urine) <=1(S) Escherichia coli: Cefepime <=0.12(S) Escherichia coli: Ceftriaxone <=0.25(S) Escherichia coli: Ciprofloxacin <=0.06(S) Escherichia coli: Gentamicin <=1(S) Escherichia coli: Trimethoprim/Sulfamethoxazole <=20(S) Specimen Source: Abdomen us David Babcock MD LAB MICROBIOLOGY - GENERAL ORDER CHIDI Final Result [facility] [address] [place] [phone] * THINPREP TIS PAP AND HPV mRNA E6/E7 WITH REFLEX TO HPV 16,18/45 (09/21/2021 3:52 PM EDT) Clinical Information: None given [facility] COMMENT SEE COMMENT FOUNDAT[facility] ON [...] has been evaluated with computer assisted technology. [facility] Calender Wind Up Tender: SEE COMMENT [facility] Comment: SARAVANAN, CT(ASCP) CT screening location: [address] ??[id number] HPV nRNA E6/E7 Not Detected Not Detected [facility] Comment: Methodology: [employer] Developer-Mediated Amplification This assay detects E6/E7 viral messenger RNA (mRNA) from 14 high-risk HPV types (16,18,31,33,35,39,45,51,52,56,58,59,66,68). ? The analytical performance characteristics of this assay have been determined by [employer]. The modifications have not been cleared or approved by the FDA. This assay has been validated pursuant to the CLIA regulations and is used for clinical purposes. ?? For additional information, please refer to http://education.[employer]Wise/faq/WIJ018o0 (This link if provided for information/ educational purposes only.) Interpretation/Re sult: Negative for intraepithelial lesion or malignancy. [facility] LMP: 08/29/2021 [facility] Prev. BX: NONE GIVEN [facility] Prev. PAP: UNSURE [facility] SOURCE: None given [facility] Statement Of Adequacy: SEE COMMENT [facility] Comment: Satisfactory for evaluation. Endocervical/transformation zone component present. 09/21/2021 3:52 PM EDT Tami PEÑA LAB PATHOLOGY ORDERABLES Final Result Performing Organization Address [facility] Co de Phone Number [facility] [address] * HEPATITIS C AB W/REFL TO HCV RNA, QN, PCR (07/22/2021 10:36 AM EDT) HEPATITIS C ANTIBODY NON-REACT LUDY NON-REACT LUDY [facility] INDEX 0.02 <1.00 [facility] Comment: ?? HCV antibody was non-reactive. There is no laboratory ?? evidence of HCV infection. ?? In most cases, no further action is required. However, if recent HCV exposure is suspected, a test for HCV RNA (test code 69815) is suggested. ?? For additional information please refer to http://education.[employer]/faq/IXR77k1 (This link is being provided for informational/ educational purposes only.) ?? 07/22/2021 10:3 6 AM EDT Nel Yoon MD HISTORICAL/NON ORDERABLE LABS Fi nal Result Performing Organization Address City/[facility]/ZIP Co de Phone Number [facility] [address] * HIV 1/2 ANTIGEN/ANTIBODY,FOURTH GENERATION W/RFL (07/22/2021 10:36 AM EDT) HIV-1/2 ANTIGEN AND ANTIBODIES, 4TH GENERATION W/ REFLEX NON-REACT LUDY NON-REACT LUDY [facility] Comment: HIV-1 antigen and HIV-1/HIV-2 [...] ? For additional information please refer to http://[employer]/faq/BPV674 (This link is being provided for informational/ educational purposes only.) ? The performance of this assay has not been clinically validated in patients less than 2 years old. ?? 07/22/2021 10:3 6 AM EDT us Nel Yoon MD LAB BLOOD ORDERABLES Final Resul t [facility] [address] from Last 3 Months or Most Recently Relevant to Health Maintenance Insurance C3 Care Teams Sane Rn Relationship Specialty Start Date End Date Nel Yoon MD [address] [place] [phone] PCP - General Family Medicine 07/22/21
--- OUTSIDE RECORDS SUMMARY | 2024-09-13 17:54 | XMS_ITS | Encounter Summary ---
Author Organization [employer] Address [address]t [place] [address] Care Team Providers Care Credit Risk Associate Name Role Phone Nel Yoon MD Primary Care Provider [phone] Reason for Visit * Reason Onset Date Comments Nurse Triage 09/13/2024 Encounter Details Date Type Department Care Team ([facility] st Contact Info) Description 09/13/2024 Telephone [facility] [address] [place], [place] [phone] Nel Yoon MD [address] [place], [place] [phone] Nurse Triage Social History Tobacco Use Types Packs/Day Years Used Date Smoking Tobacco: Never Passive Smoke Exposure: Never Smokeless Tobacco: Never Housing Stability Answer Date Recorded What is your housing situation today? I have samiparvin hernandez 07/12/[address] you [...] encounter Miscellaneous Notes * Telephone Encounter - Mary Da Silva RN - 09/13/2024 9:32 AM EDT Call returned to [facility] to triage below. Reports having lower abdominal pain and urinary pressure and urgency. Pt denies any odor, dark color or cloudiness . Pt endorses flank pain. Mild nausea.No fever or vomiting. No unusual vaginal discharge. Per pt recently on tx for Diflucan for yeast on colostomy bag. Last dose 3 days ago. Pt was tx by an UC. Pt advised of disposition, agrees to seek [facility] for exam as no sick on site availability on teams at time of call. Reviewed [facility] operating hours and that wait times vary.Reviewed home care advise, ER precautions and reasons to call back. Protocol Used: Urinary Symptoms (Adult) Protocol-Based Disposition: See in Office or Video Visit Today Insurance verified as active per Real Time Eligibility in [facility].' Video visit offer not recorded Positive Triage Question: * Urinating more frequently than usual (i.e., frequency) OR new-onset of the feeling of an urgent need to urinate (i.e., urgency) * All higher-acuity triage questions were negative Care Advice Discussed: * Reasons To Call Back - Fever occurs - Pain or burning with urination - Unable to urinate and bladder feels full - You become worse * Telephone Encounter - Bridgette Harp - 09/13/2024 9:29 AM EDT Symptoms: Urine Symptoms, Abdominal Pain - Female - Not Outcome: Schedule an urgent appointment (within 4 hours) or talk to a nurse or provider soon Reason: Started within the past 3 days The caller accepted this outcome. Contact pt at [phone] documented in this encounter Plan of Treatment Upcoming Encounters Date Type Department Care Team (Late st Contact Info) Description 10/16/2024 10:30 AM EDT Office Visit [facility] [address] [place] [address] Nel Yoon MD [address] [place] [address] documented as of this encounter Visit Diagnoses Not on filedocumented in this encounter Care Teams Credit Risk Associate Relationship Specialty Start Date End Date Nel Yoon MD [address] [place] [phone] PCP - General Family Medicine 07/22/21 documented as of this encounter
== END 2024-09-13 17:52 | disposition home or self-care (01) ==
LOC: HO.LNP 17:51
PROVIDERS: Visit Provider Nurse Practitioner Family
DX: R30.0 Dysuria (principal)
CPT/HCPCS: 87086; 87088; 87186

== ENCOUNTER 2024-10-16 11:24 | Outpatient (REF) | payer MEDICAID, SELFPAY ==
--- OUTSIDE RECORDS SUMMARY | 2024-10-16 13:19 | XMS_ITS | Encounter Summary ---
Author Organization [employer] Address [address] [place] [address] 7 [place] [address] Care Team Providers Care Technical Architect Name Role Phone Nel Yoon MD Primary Care Provider [phone] Encounter Details Date Type Department Care Team (Late st Contact Info) Description 08/12/2022 Orders Only [facility] [address] [place], [place] [phone] Nel Yoon MD [address] [place], [place] [phone] POTS (postural orthostatic tachycardia syndrome) (Primary Dx); History of COVID-19; Ulcerative colitis with complication, unspecified location (CMS/HCC) [...] as of this encounter Plan of Treatment Not on file documented as of this encounter Procedures Procedure [...] EDT) Hepatitis B Surface Ag Negative Negative [facility] 08/22/2022 8:46 AM EDT 08/22/2022 8:46 AM EDT [facility] External Provider LAB BLO OD ORDERABLES Final Result Performing Organization Address [facility] Co de Phone Number [facility] [address] [place] [phone] * Hepatitis B Core Antibody, Total (08/22/2022 8:46 AM EDT) Hepatitis B Core Antibody Nonreactive Nonreactive [facility] 08/22/2022 8:46 AM EDT 08/22/2022 8:46 AM EDT [facility] External Provider LAB BLO OD ORDERABLES Final Result Performing Organization Address [facility]/ZIP Co de Phone Number [facility] [address] [place] [phone] * Hepatitis B Surface Antibody, Qualitative (08/22/2022 8:46 AM EDT) ~Hepatitis B Surface Antibody REACTIVE Nonreactive [facility] Comment:REACTIVE: > 11.99 mI U/mL 08/22/2022 8:46 AM EDT 08/22/2022 8:46 AM EDT [facility] External Provider LAB BLO OD ORDERABLES Final Result Performing Organization Address [facility] Co de Phone Number [facility] [address] [place] [phone] [phone] * Hepatitis A Antibody IgG (08/22/2022 8:46 AM EDT) Pathologist [facility] Hepatitis A Antibody IgG REACTIVE Nonreactive [facility] Comment:The presence of IgG anti-HAV implies past HAV infection(recent or distant) or vaccination against HAV. 08/22/2022 8:46 AM EDT 08/22/2022 8:46 AM EDT [facility] External Provider LAB BLO OD ORDERABLES Final Result Performing Organization Address [facility] de Phone Number [facility] [address] [place] [phone] * (ABNORMAL) Vitamin B12/Folate, Serum Panel (08/22/2022 8:46 AM EDT) Pathologist [facility] Vitamin B12 1,551(H) 200 - 900 pg/mL [facility] Comment:NORMAL 200-900 PG/ML INDETERMINATE 160-199 PG/ML DEFICIENT < 160 PG/ML Folate 14.9 > or = 4.0 ng/mL [facility] Comment:Reference Values:> o r = 4.0 ng/mL< 4.0 ng/mL suggests folate deficiency Methotrexate, aminopterin and folinic acid(leucovorin) are chemotherapeutic agents whose molecularstructures are similar to folate; therefore, the Architectfolate assay cannot be used for patients using these drugs. 08/22/2022 8:46 AM EDT 08/22/2022 8:46 AM EDT [facility] External Provider LAB BLO OD ORDERABLES Final Result Performing Organization Address [facility] Co de Phone Number [facility] [address] [place] [phone] * C-reactive Protein (08/22/2022 8:46 AM EDT) C Reactive Protein <0.10 < or = 0.50 mg/dL [facility] 08/22/2022 8:46 AM EDT 08/22/2022 8:46 AM EDT [facility] External Provider LAB BLO OD ORDERABLES Final Result Performing Organization Address [facility] de Phone Number [facility] [address] [place] [phone] * (ABNORMAL) Comprehensive Metabolic Panel (08/22/2022 8:46 AM EDT) Sodium 139 135 - 145 mmol/L [facility] Potassium 5.2(H) 3.3 - 5.1 mmol/L [facility] Chloride 104 96 - 108 mmol/L [facility] Carbon Dioxide 27 22 - 29 mmol/L [facility] Anion Gap 13 12 - 20 [facility] Urea Nitrogen (BUN) 13 9 - 16 mg/dL [facility] Creatinine, Serum 0.80 0.5 - 1.4 mg/dL [facility] Estimated Glomerular Filt Rate >60 [facility] Comment:NOTE: For -Am erican individuals, multiply the result by 1.210.Chronic Kidney Disease: Estimated GFR < 60 mL/min/1.29v8Srcjvs Kidney Disease: Estimated GFR < 15 mL/min/1.73m2 Glucose 92 60 - 115 mg/dL [facility] Calcium 9.8 8.4 - 10.2 mg/dL [facility] Bilirubin, Total 0.5 0.0 - 1.0 mg/dL [facility] Aspartate Amino Transferase 25 5 - 31 U/L [facility] Alanine Aminotransferase 34(H) 0 - 31 U/L [facility] Total Protein 7.6 6.5 - 8.0 g/dL [facility] Albumin Level 4.8 3.5 - 5.0 g/dL [facility] Alkaline Phosphatase 51 39 - 117 U/L [facility] 08/22/2022 8:46 AM EDT 08/22/2022 8:46 AM EDT us [facility] External Provider LAB BLO OD ORDERABLES Final Result [facility] [address] [place] [phone] * CBC (08/22/2022 8:46 AM EDT) White Blood Count 6.2 4.8 - 10.8 X10*3/uL [facility] Red Blood Count 5.25 4.20 - 5.50 X10*6/uL [facility] Hemoglobin 14.7 12.0 - 16.0 g/dl [facility] Hematocrit 44.1 37.0 - 47.0 % [facility] Mean Corpuscular Volume 84.0 80.0 - 98.0 fL [facility] Mean Corpuscular Hemoglobin 28.0 27.0 - 33.0 pg [facility] Mean Corpuscular HGB Conc 33.3 31.0 - 35.0 g/dl [facility] Red Cell Distribution Width 13.1 11.0 - 16.0 % [facility] Platelet Count 285 160 - 400 X10*3/uL [facility] Mean Platelet Volume 9.9 9.4 - 12.3 fL [facility] NRBC Pct Auto 0.0 0.0 - 0.2 /100WBC [facility] NRBC Abs Auto 0.000 0.0 - 0.012 X10*3/uL [facility] 08/22/2022 8:46 AM EDT 08/22/2022 8:46 AM EDT us [facility] External Provider LAB BLO OD ORDERABLES Final Result [facility] [address] [place] [phone] documented in this encounter Visit Diagnoses Diagnosis POTS (postural orthostatic tachycardia syndrome)- Primary Unspecified tachycardia History of COVID-19 Ulcerative colitis with complication, unspecified location (CMS/HCC) documented in this encounter Care Teams Technical Architect Relationship Specialty Start Date End Date Nel Yoon MD [address] [place] [phone] PCP - General Family Medicine 07/22/21 [place] Pull Up Hand 09/18/24 documented as of this encounter
[2024-10-16 13:30] LABS: MANUAL DIFF FLAG NO
[2024-10-16 13:40] LABS: Basophils Absolute Auto 0.1 X10*3/uL (0.0-0.2); Basophils Percent Auto 0.8 % (0-2); Eosinophils Absolute Auto 0.3 X10*3/uL (0.0-0.4); Eosinophils Percent Auto 4.9 % (0-4); Hematocrit 44.7 % (37.0-47.0); Hemoglobin 14.5 g/dl (12.0-16.0); Imm Gran Abs Auto 0.01 X10*3/uL (0.00-0.03); Imm Gran Pct Auto 0.2 % (0.0-0.4); Immature Retic Fraction 7.6 % (3.0-15.9); Lymphocytes Percent Auto 30.8 % (20-40); Mean Corpuscular HGB Conc 32.4 g/dl (31.0-35.0); Mean Corpuscular Hemoglobin 26.3 pg (27.0-33.0); Mean Platelet Volume 10.8 fL (9.4-12.3); Monocytes Absolute Auto 0.4 X10*3/uL (0.1-1.2); Monocytes Percent Auto 6.3 % (2-11); Neutrophils Absolute Auto 3.7 x10*3/uL (2.0-8.3); Platelet Count 259 X10*3/uL (160-400); Red Blood Count 5.52 X10*6/uL (4.20-5.50); Red Cell Distribution Width 14.3 % (11.0-16.0); Retic HGB Equivalent 30.2 pg (30.0-35.0); Reticulocytes Absolute 0.054 X10*6/uL (0.026-0.095); White Blood Count 6.6 X10*3/uL (4.8-10.8)
[2024-10-16 14:09] LABS: Alanine Aminotransferase 41 U/L (0-31); Albumin Level 4.9 g/dL (3.5-5.0); Alkaline Phosphatase 74 U/L (39-117); Anion Gap 13 (12-20); Aspartate Amino Transferase 30 U/L (5-31); Bilirubin Direct < 0.2 mg/dL (0.0-0.5); Bilirubin Total 0.2 mg/dL (0.0-1.0); Blood Urea Nitrogen 24 mg/dL (9-16); Carbon Dioxide 27 mmol/L (22-29); Chloride 105 mmol/L (96-108); Estimated Glomerular Filt Rate > 60; Glucose Random 79 mg/dL (60-115); Iron 87 mcg/dL (30-160); Percent Iron Saturation 30 % (15-50); Potassium 4.6 mmol/L (3.3-5.1); Sodium 140 mmol/L (135-145); Total Iron Binding Capacity 286 mcg/dL (228-428); Total Protein 7.7 g/dL (6.5-8.0); Unsaturated Iron Binding 199 ug/dL
[2024-10-16 14:14] LABS: Ferritin 22 ng/mL (10-122); Vitamin D 25-OH Total 73.7 ng/mL (>30)
[2024-10-16 14:23] LABS: Vitamin B12 1184 pg/mL (200-900)
== END 2024-10-16 11:25 | disposition home or self-care (01) ==
LOC: HO.HHCL 11:24
PROVIDERS: PCP Family Medicine; Visit Provider Family Medicine
DX: K51.919 Ulcerative colitis, unspecified with unspecified complications (principal); R53.83 Other fatigue
CPT/HCPCS: 36415; 80048; 80076; 82306; 82607; 82728; 82746; 83540; 84443; 85025; 85045